=== PATIENT | male | born 1975 | race Caucasian/White ===

== ENCOUNTER 2019-08-02 13:12 | Outpatient (CLI) | payer MEDICAID, SELFPAY ==
--- NOTE | 2019-08-02 13:20 | MR_ITS ---
WS: [id number] MRI CERVICAL SPINE NONCONTRAST TECHNIQUE: Sagittal T1, T2 and STIR imaging. Axial T2, gradient, and fiesta imaging. CLINICAL INFORMATION: CERVICAL DISC DISEASE COMPARISON: None. FINDINGS: Straightening of the normal cervical lordosis. No high-grade central canal narrowing. Cord signal is normal. C2-C3: Normal. C3-C4: Mild disc bulging and osteophytic ridging. Moderate left and mild right bony foraminal narrowi ng. Mild facet arthropathy. Central canal is patent. C4-C5: Minimal disc bulging. Mild right and no significant left foraminal narrowing. Spinal canal is patent. C5-C6: Mild disc bulging with endplate ridging. Mild left and no significant right foraminal narrowin g. Mild facet arthropathy. Spinal canal is patent. C6-C7: Disc osteophyte complex with endplate ridging. Moderate to severe bilateral bony foraminal nir rowing. Mild central canal stenosis. C7-T1: Mild disc bulging with endplate ridging. Mild left greater than right foraminal narrowing. Spi nal canal is patent. Small central protrusion T2-3. Visualized brain stem structures: Normal. Prevertebral soft tissues: Normal. MR/MR cervical spin wo con* [id number] IMPRESSION: 1. Straightening of the normal cervical lordosis. No high-grade central canal stenosis. Cord signal is normal. 2. Mild central canal stenosis C5-C6 and C6-C7 due to small disc osteophyte pr otrusions. 3. Severe bilateral bony foraminal narrowing C6-C7. 4. Moderate bony foraminal narrowing left C3-C4 and left C7-T1.
--- NOTE | 2019-08-02 13:21 | MR_ITS ---
WS: [id number] MRI THORACIC SPINE WITHOUT CONTRAST TECHNIQUE: Sagittal T1, T2 and STIR imaging. Axial T2 imaging. Noncontrast imaging obtained. CLINICAL INFORMATION: RADIUCLAR PAIN OF THOARCIC REGION COMPARISON: None. FINDINGS: Mild thoracic curve. No acute compression fractures. Disc space heights and vertebral body heights ar e well-maintained. Minimal disc bulging in the upper and mid thoracic spine. Tiny central syrinx in t he thoracic cord at the T8 level measures approximately 1.7 mm in AP dimension. Syrinx extends over a pproximately 1 vertebral body length. Cord signal is otherwise normal. Tiny central protrusion at T6-T7 with slight effacement of ventral thecal sac. Moderate facet arthrop athy lower thoracic spine. Mild left T10-11 foraminal narrowing. Normal caliber thoracic aorta. Adrenal glands are normal. MR/MR thoracic spin wo con* [id number] IMPRESSION: 1. Tiny syrinx in the thoracic cord at the T8 level measuring 1.7 mm in maximu m AP dimension. Cord signal is otherwise normal. 2. Shallow central protrusion at T6-T7 with slight effacement of ventral theca l sac. 3. Mild left T10-11 bony foraminal narrowing. 4. Mild to moderate facet arthropathy in the lower thoracic spine.
== END 2019-08-02 13:13 | disposition home or self-care (01) ==
PROVIDERS: Family Provider Registered Nurse; PCP Registered Nurse; Referring Provider Registered Nurse; Visit Provider Registered Nurse
DX: M50.80 Other cervical disc disorders, unspecified cervical region (principal); M54.6 Pain in thoracic spine; M51.24 Other intervertebral disc displacement, thoracic region; M48.02 Spinal stenosis, cervical region; M50.223 Other cervical disc displacement at C6-C7 level; M25.78 Osteophyte, vertebrae
CPT/HCPCS: 72141; 72146

== ENCOUNTER 2019-08-23 09:21 | Outpatient (CLI) | payer MEDICAID, SELFPAY ==
--- NOTE | 2019-08-23 10:02 | MR_ITS ---
WS: [id number] MRI LUMBAR SPINE NONCONTRAST HISTORY: BACK PAIN COMPARISON: Lumbar spine MRI 09/23/2014 TECHNIQUE: Sagittal and axial multisequence imaging is submitted. Sagittal survey demonstrates straightening of the normal cervical lordosis and thoracic kyphosis. Pre viously described syrinx centered at the T8 level is again identified. Central disc protrusion at T2- 3 is stable. No progression since the prior study. Straightening and slight reversal of normal lumbar lordosis. Disc spaces are maintained with mild disc desiccation. No fracture or marrow edema. Conus terminates normally at L1. L1-L2: Mild annular disc bulging without stenosis. L2-L3: Mild annular disc bulging and osteophytosis. No significant stenosis. L3-L4: Mild annular disc bulging and osteophytosis. Amount of fluid in the facet joints. L4-L5: Very mild annular disc bulging. No significant stenosis. Minimal encroachment upon the subarti cular recesses and foramen. L5-S1: Mild facet arthropathy. Very slight encroachment upon the subarticular recesses and foramen bi laterally. Visualized retroperitoneum is negative. MR/MR lumbar spine wo con* [id number] IMPRESSION: 1. Mild straightening and reversal of the normal lumbar lordosis. 2. No significant central or foraminal stenosis. 3. Mild bilateral foraminal and subarticular recess narrowing at L4-5 and L5-S 1.
== END 2019-08-23 09:22 | disposition home or self-care (01) ==
LOC: RADSHAW 09:21 → RADWPI 09:24
PROVIDERS: Family Provider Registered Nurse; PCP Registered Nurse; Visit Provider Registered Nurse
DX: M54.5 Low back pain (principal)
CPT/HCPCS: 72148

== ENCOUNTER → 2019-08-31 14:19 | Outpatient (BNVA) | payer MEDICAID, SELFPAY | PROVIDERS: Family Provider Registered Nurse; PCP Internal Medicine; Visit Provider Internal Medicine Rheumatology | DX: M79.10 Myalgia, unspecified site (principal); Z79.899 Other long term (current) drug therapy | CPT/HCPCS: 36415; 82085; 82550; 85651; 86140; 99213 ==

== ENCOUNTER → 2020-01-06 12:26 | Outpatient (BNVA) | payer MEDICAID, SELFPAY | PROVIDERS: Family Provider Registered Nurse; PCP Family Medicine; Referring Provider Family Medicine; Visit Provider Anesthesiology Pain Medicine | DX: G89.29 Other chronic pain (principal); M50.90 Cervical disc disorder, unspecified, unspecified cervical region; M54.6 Pain in thoracic spine; G57.93 Unspecified mononeuropathy of bilateral lower limbs; F17.220 Nicotine dependence, chewing tobacco, uncomplicated; Z79.891 Long term (current) use of opiate analgesic | CPT/HCPCS: 99204; 99205 ==

== ENCOUNTER → 2020-01-19 13:06 | Outpatient (BNVA) | payer MEDICAID, SELFPAY | PROVIDERS: Family Provider Registered Nurse; PCP Family Medicine; Visit Provider Anesthesiology Pain Medicine | DX: G89.29 Other chronic pain (principal); M47.816 Spondylosis without myelopathy or radiculopathy, lumbar region; M54.6 Pain in thoracic spine; F17.220 Nicotine dependence, chewing tobacco, uncomplicated; Z79.891 Long term (current) use of opiate analgesic | CPT/HCPCS: 64493; 64494; 64495; J2001; J3490 ==

== ENCOUNTER → 2020-02-01 10:18 | Outpatient (BNVA) | payer MEDICAID, SELFPAY | PROVIDERS: Family Provider Registered Nurse; PCP Family Medicine; Visit Provider Anesthesiology Pain Medicine | DX: G89.29 Other chronic pain (principal); M54.12 Radiculopathy, cervical region; M47.812 Spondylosis without myelopathy or radiculopathy, cervical region; M50.90 Cervical disc disorder, unspecified, unspecified cervical region; M54.6 Pain in thoracic spine; M47.816 Spondylosis without myelopathy or radiculopathy, lumbar region; Z79.891 Long term (current) use of opiate analgesic; I10 Essential (primary) hypertension; R35.1 Nocturia; F17.220 Nicotine dependence, chewing tobacco, uncomplicated | CPT/HCPCS: 80053; 80061; 82044; 84153; 85025; 99214 ==

== ENCOUNTER → 2020-02-07 07:43 | Outpatient (BNVA) | payer MEDICAID, SELFPAY | PROVIDERS: Family Provider Registered Nurse; PCP Family Medicine; Visit Provider Nurse Practitioner Psychiatric/Mental Health | DX: F33.1 Major depressive disorder, recurrent, moderate (principal); M25.50 Pain in unspecified joint; F41.1 Generalized anxiety disorder; M79.10 Myalgia, unspecified site; F17.220 Nicotine dependence, chewing tobacco, uncomplicated; M47.816 Spondylosis without myelopathy or radiculopathy, lumbar region; M50.90 Cervical disc disorder, unspecified, unspecified cervical region; M48.061 Spinal stenosis, lumbar region without neurogenic claudication; Z79.899 Other long term (current) drug therapy | CPT/HCPCS: 99214 ==

== ENCOUNTER 2020-02-25 09:42 | Outpatient (CLI) | payer MEDICAID, SELFPAY ==
--- NOTE | 2020-02-25 10:00 | CT_ITS ---
WS: [id number] CT CHEST WITH INTRAVENOUS CONTRAST HISTORY: left basilar opacity with nodularity TECHNIQUE: Contiguous 5 mm axial imaging performed on the thorax. Coronal and sagittal reformats are submitted. All CT scans at [facility] use at least one of these dose optimization techniq ues: automated exposure control; mA and/or kV adjustment per patient size (includes targeted exams wh ere dose is matched to clinical indication); or iterative reconstruction. CONTRAST: Omnipaque 300; 95 mL IV. DLP: 1094.56 mGycm COMPARISON: No similar study studies. Prior chest radiograph 05/18/2019. Lungs and central airway: Lungs are clear and well aerated. No pulmonary mass or nodule. No pneumonia . Normal vasculature. No opacification of the LEFT lung base. Pleura: Normal. No pleural effusion. Heart and pericardium: Normal size heart. No pericardial effusion. Mediastinum and jolie: No mediastinum or hilar adenopathy. Vessels: Normal size aortic and pulmonary artery. No coronary artery calcifications. LEFT vertebral a rtery arises directly from the arch, normal variant. Chest wall and lower neck: Ovoid nodule measures 12 mm inferior RIGHT thyroid. Upper abdomen: Mild hepatic steatosis. There are a few scattered low-attenuation lesions within the l iver which are too small to characterize. Probably are small cysts. Prior cholecystectomy. Osseous structures: Mild straightening of the normal lumbar lordosis with RIGHT convex curvature. CT/CT chest w con* [id number] IMPRESSION: 1. No lung mass or opacification. 2. Prior cholecystectomy. 3. 12 mm RIGHT thyroid nodule. 4. 2. Small to characterize scattered hypodensities throughout the liver.
[2020-02-25] MEDS: iohexol 300 mg/mL 100 mL Btl IV (10:18)
== END 2020-02-25 09:43 ==
PROVIDERS: Family Provider Registered Nurse; PCP Family Medicine; Visit Provider Internal Medicine Rheumatology
DX: G89.29 Other chronic pain (principal); M47.816 Spondylosis without myelopathy or radiculopathy, lumbar region; M54.6 Pain in thoracic spine; M50.90 Cervical disc disorder, unspecified, unspecified cervical region; M54.12 Radiculopathy, cervical region; M47.812 Spondylosis without myelopathy or radiculopathy, cervical region; G57.93 Unspecified mononeuropathy of bilateral lower limbs; M25.50 Pain in unspecified joint; F17.220 Nicotine dependence, chewing tobacco, uncomplicated; Z79.891 Long term (current) use of opiate analgesic
CPT/HCPCS: 64635; 64636; 71260; 99213; 99214; J1030; Q9967

== ENCOUNTER → 2020-03-01 13:50 | Outpatient (BNVA) | payer MEDICAID, SELFPAY | PROVIDERS: Family Provider Registered Nurse; PCP Family Medicine; Visit Provider Anesthesiology Pain Medicine | DX: G89.29 Other chronic pain (principal); M47.816 Spondylosis without myelopathy or radiculopathy, lumbar region; M54.6 Pain in thoracic spine; M54.9 Dorsalgia, unspecified; Z79.891 Long term (current) use of opiate analgesic | CPT/HCPCS: 64635; 64636; 80048; J1030 ==

== ENCOUNTER → 2020-03-14 09:32 | Outpatient (BNVA) | payer MEDICAID, SELFPAY | PROVIDERS: Family Provider Registered Nurse; PCP Family Medicine; Visit Provider Nurse Practitioner Psychiatric/Mental Health | DX: F33.1 Major depressive disorder, recurrent, moderate (principal); F41.1 Generalized anxiety disorder; F17.220 Nicotine dependence, chewing tobacco, uncomplicated | CPT/HCPCS: 99214 ==

== ENCOUNTER → 2020-03-23 10:40 | Outpatient (BNVA) | payer MEDICAID, SELFPAY | PROVIDERS: Family Provider Registered Nurse; PCP Family Medicine; Visit Provider Anesthesiology Pain Medicine | DX: G89.29 Other chronic pain (principal); M25.552 Pain in left hip; M47.816 Spondylosis without myelopathy or radiculopathy, lumbar region; M54.12 Radiculopathy, cervical region; M47.812 Spondylosis without myelopathy or radiculopathy, cervical region; M50.90 Cervical disc disorder, unspecified, unspecified cervical region; M54.6 Pain in thoracic spine; M25.50 Pain in unspecified joint; F17.220 Nicotine dependence, chewing tobacco, uncomplicated; Z79.891 Long term (current) use of opiate analgesic | CPT/HCPCS: 99214 ==

== ENCOUNTER → 2020-04-05 13:03 | Outpatient (BNVA) | payer MEDICAID, SELFPAY | PROVIDERS: Family Provider Registered Nurse; PCP Family Medicine; Visit Provider Anesthesiology Pain Medicine | DX: G89.29 Other chronic pain (principal); M47.816 Spondylosis without myelopathy or radiculopathy, lumbar region; M54.6 Pain in thoracic spine; F17.220 Nicotine dependence, chewing tobacco, uncomplicated | CPT/HCPCS: 64490; 64491; 64492; J1040; J3490 ==

== ENCOUNTER → 2020-04-12 09:46 | Outpatient (BNVA) | payer MEDICAID, SELFPAY | PROVIDERS: Family Provider Registered Nurse; PCP Family Medicine; Visit Provider Nurse Practitioner Psychiatric/Mental Health | DX: F33.1 Major depressive disorder, recurrent, moderate (principal); F41.1 Generalized anxiety disorder; F17.220 Nicotine dependence, chewing tobacco, uncomplicated; F33.2 Major depressive disorder, recurrent severe without psychotic features | CPT/HCPCS: 99214 ==

== ENCOUNTER → 2020-04-27 09:24 | Outpatient (BNVA) | payer MEDICAID, SELFPAY | PROVIDERS: Family Provider Registered Nurse; PCP Family Medicine; Visit Provider Anesthesiology Pain Medicine | DX: Z79.899 Other long term (current) drug therapy (principal); G89.29 Other chronic pain; M54.12 Radiculopathy, cervical region; M50.90 Cervical disc disorder, unspecified, unspecified cervical region; M47.812 Spondylosis without myelopathy or radiculopathy, cervical region; M47.816 Spondylosis without myelopathy or radiculopathy, lumbar region; M48.061 Spinal stenosis, lumbar region without neurogenic claudication; G25.81 Restless legs syndrome; M79.10 Myalgia, unspecified site; F17.220 Nicotine dependence, chewing tobacco, uncomplicated; Z79.891 Long term (current) use of opiate analgesic | CPT/HCPCS: 36415; 80076; 82565; 85025; 85651; 86140; 99214 ==

== ENCOUNTER → 2020-05-10 07:55 | Outpatient (BNVA) | payer MEDICAID, SELFPAY | PROVIDERS: Family Provider Registered Nurse; PCP Family Medicine; Visit Provider Nurse Practitioner Psychiatric/Mental Health | DX: F33.1 Major depressive disorder, recurrent, moderate (principal); F41.1 Generalized anxiety disorder; F17.220 Nicotine dependence, chewing tobacco, uncomplicated | CPT/HCPCS: 99214 ==

== ENCOUNTER → 2020-05-11 14:36 | Outpatient (BNVA) | payer MEDICAID, SELFPAY | PROVIDERS: Family Provider Registered Nurse; PCP Family Medicine; Visit Provider Internal Medicine Rheumatology | DX: I10 Essential (primary) hypertension (principal); M79.10 Myalgia, unspecified site; M47.816 Spondylosis without myelopathy or radiculopathy, lumbar region; Z68.33 Body mass index [BMI] 33.0-33.9, adult; F17.220 Nicotine dependence, chewing tobacco, uncomplicated; M47.812 Spondylosis without myelopathy or radiculopathy, cervical region; M25.50 Pain in unspecified joint; Z79.899 Other long term (current) drug therapy | CPT/HCPCS: 80048; 99214 ==

== ENCOUNTER → 2020-05-25 09:57 | Outpatient (BNVA) | payer MEDICAID, SELFPAY | PROVIDERS: Family Provider Registered Nurse; PCP Family Medicine; Visit Provider Anesthesiology Pain Medicine | DX: G89.29 Other chronic pain (principal); M50.90 Cervical disc disorder, unspecified, unspecified cervical region; M47.812 Spondylosis without myelopathy or radiculopathy, cervical region; M47.816 Spondylosis without myelopathy or radiculopathy, lumbar region; M48.061 Spinal stenosis, lumbar region without neurogenic claudication; M54.6 Pain in thoracic spine; M79.10 Myalgia, unspecified site; G57.93 Unspecified mononeuropathy of bilateral lower limbs; G25.81 Restless legs syndrome; Z79.891 Long term (current) use of opiate analgesic | CPT/HCPCS: 99213; 99214 ==

== ENCOUNTER → 2020-06-13 07:48 | Outpatient (BNVA) | payer MEDICAID, SELFPAY | PROVIDERS: Family Provider Registered Nurse; PCP Family Medicine; Visit Provider Nurse Practitioner Psychiatric/Mental Health | DX: F33.1 Major depressive disorder, recurrent, moderate (principal); M79.7 Fibromyalgia; F41.1 Generalized anxiety disorder; F17.220 Nicotine dependence, chewing tobacco, uncomplicated | CPT/HCPCS: 99214 ==

== ENCOUNTER → 2020-06-15 09:28 | Outpatient (BNVA) | payer MEDICAID, SELFPAY | PROVIDERS: Family Provider Registered Nurse; PCP Family Medicine; Visit Provider Anesthesiology Pain Medicine | DX: Z79.899 Other long term (current) drug therapy (principal); G89.29 Other chronic pain; M47.814 Spondylosis without myelopathy or radiculopathy, thoracic region; M48.061 Spinal stenosis, lumbar region without neurogenic claudication; M47.816 Spondylosis without myelopathy or radiculopathy, lumbar region; M50.90 Cervical disc disorder, unspecified, unspecified cervical region; M47.812 Spondylosis without myelopathy or radiculopathy, cervical region; M54.12 Radiculopathy, cervical region; G25.81 Restless legs syndrome; M79.10 Myalgia, unspecified site; M54.9 Dorsalgia, unspecified | CPT/HCPCS: 36415; 80076; 82565; 85025; 85651; 86140; 99214 ==

== ENCOUNTER → 2020-07-13 09:36 | Outpatient (BNVA) | payer MEDICAID, SELFPAY | PROVIDERS: Family Provider Registered Nurse; PCP Family Medicine; Visit Provider Anesthesiology Pain Medicine | DX: G89.29 Other chronic pain (principal); M47.816 Spondylosis without myelopathy or radiculopathy, lumbar region; M54.6 Pain in thoracic spine; M54.12 Radiculopathy, cervical region; M50.90 Cervical disc disorder, unspecified, unspecified cervical region; M47.812 Spondylosis without myelopathy or radiculopathy, cervical region; M48.061 Spinal stenosis, lumbar region without neurogenic claudication; M54.9 Dorsalgia, unspecified; G25.81 Restless legs syndrome; M79.10 Myalgia, unspecified site | CPT/HCPCS: 99214 ==

== ENCOUNTER → 2020-08-15 07:32 | Outpatient (BNVA) | payer MEDICAID, SELFPAY | PROVIDERS: Family Provider Registered Nurse; PCP Family Medicine; Visit Provider Nurse Practitioner Psychiatric/Mental Health | DX: F33.1 Major depressive disorder, recurrent, moderate (principal); F41.1 Generalized anxiety disorder; M79.7 Fibromyalgia; F17.220 Nicotine dependence, chewing tobacco, uncomplicated | CPT/HCPCS: 99214 ==

== ENCOUNTER → 2020-08-17 09:32 | Outpatient (BNVA) | payer MEDICAID, SELFPAY | PROVIDERS: Family Provider Registered Nurse; PCP Family Medicine; Visit Provider Anesthesiology Pain Medicine | DX: G89.29 Other chronic pain (principal); M48.061 Spinal stenosis, lumbar region without neurogenic claudication; M47.816 Spondylosis without myelopathy or radiculopathy, lumbar region; M54.6 Pain in thoracic spine; M54.9 Dorsalgia, unspecified; M50.90 Cervical disc disorder, unspecified, unspecified cervical region; M47.812 Spondylosis without myelopathy or radiculopathy, cervical region; M54.12 Radiculopathy, cervical region; G25.81 Restless legs syndrome; F17.220 Nicotine dependence, chewing tobacco, uncomplicated; Z79.891 Long term (current) use of opiate analgesic | CPT/HCPCS: 99214 ==

== ENCOUNTER → 2020-09-12 07:38 | Outpatient (BNVA) | payer MEDICAID, SELFPAY | PROVIDERS: Family Provider Registered Nurse; PCP Family Medicine; Visit Provider Nurse Practitioner Psychiatric/Mental Health | DX: F33.1 Major depressive disorder, recurrent, moderate (principal); M79.7 Fibromyalgia; F41.1 Generalized anxiety disorder; F17.220 Nicotine dependence, chewing tobacco, uncomplicated; F60.3 Borderline personality disorder | CPT/HCPCS: 99214 ==

== ENCOUNTER → 2020-09-15 10:43 | Outpatient (BNVA) | payer MEDICAID, SELFPAY | PROVIDERS: Family Provider Registered Nurse; PCP Family Medicine; Visit Provider Anesthesiology Pain Medicine | DX: G89.29 Other chronic pain (principal); M54.6 Pain in thoracic spine; M50.90 Cervical disc disorder, unspecified, unspecified cervical region; M54.9 Dorsalgia, unspecified; M47.816 Spondylosis without myelopathy or radiculopathy, lumbar region; M47.812 Spondylosis without myelopathy or radiculopathy, cervical region; M54.12 Radiculopathy, cervical region; M48.061 Spinal stenosis, lumbar region without neurogenic claudication; G25.81 Restless legs syndrome; F17.210 Nicotine dependence, cigarettes, uncomplicated; Z79.891 Long term (current) use of opiate analgesic | CPT/HCPCS: 99214 ==

== ENCOUNTER → 2020-10-10 07:40 | Outpatient (BNVA) | payer MEDICAID, SELFPAY | PROVIDERS: Family Provider Registered Nurse; PCP Family Medicine; Visit Provider Nurse Practitioner Psychiatric/Mental Health | DX: F33.1 Major depressive disorder, recurrent, moderate (principal); F41.1 Generalized anxiety disorder; F17.220 Nicotine dependence, chewing tobacco, uncomplicated; M79.7 Fibromyalgia | CPT/HCPCS: 99214 ==

== ENCOUNTER → 2020-10-16 10:19 | Outpatient (BNVA) | payer MEDICAID, SELFPAY | PROVIDERS: Family Provider Registered Nurse; PCP Family Medicine; Visit Provider Anesthesiology Pain Medicine | DX: G89.29 Other chronic pain (principal); M50.90 Cervical disc disorder, unspecified, unspecified cervical region; M47.812 Spondylosis without myelopathy or radiculopathy, cervical region; M47.816 Spondylosis without myelopathy or radiculopathy, lumbar region; M48.061 Spinal stenosis, lumbar region without neurogenic claudication; M54.12 Radiculopathy, cervical region; M54.9 Dorsalgia, unspecified; M79.10 Myalgia, unspecified site; G25.81 Restless legs syndrome; F17.220 Nicotine dependence, chewing tobacco, uncomplicated; Z79.891 Long term (current) use of opiate analgesic | CPT/HCPCS: 99214 ==

== ENCOUNTER → 2020-11-02 08:52 | Outpatient (BNVA) | payer MEDICAID, SELFPAY | PROVIDERS: Family Provider Registered Nurse; PCP Family Medicine; Referring Provider Anesthesiology Pain Medicine; Visit Provider Orthopaedic Surgery | DX: M48.061 Spinal stenosis, lumbar region without neurogenic claudication (principal); M54.6 Pain in thoracic spine; M48.02 Spinal stenosis, cervical region; M54.12 Radiculopathy, cervical region | CPT/HCPCS: 72050; 72072; 72110 ==

== ENCOUNTER → 2020-11-08 07:59 | Outpatient (BNVA) | payer MEDICAID, SELFPAY | PROVIDERS: Family Provider Registered Nurse; PCP Family Medicine; Visit Provider Nurse Practitioner Psychiatric/Mental Health | DX: F33.1 Major depressive disorder, recurrent, moderate (principal); M79.7 Fibromyalgia; F41.1 Generalized anxiety disorder; F17.220 Nicotine dependence, chewing tobacco, uncomplicated | CPT/HCPCS: 99214 ==

== ENCOUNTER → 2020-11-10 12:52 | Outpatient (BNVA) | payer MEDICAID, SELFPAY | PROVIDERS: Family Provider Registered Nurse; PCP Family Medicine; Visit Provider Anesthesiology Pain Medicine | DX: G89.29 Other chronic pain (principal); M54.12 Radiculopathy, cervical region; M50.90 Cervical disc disorder, unspecified, unspecified cervical region; M54.6 Pain in thoracic spine; F17.210 Nicotine dependence, cigarettes, uncomplicated; Z79.891 Long term (current) use of opiate analgesic | CPT/HCPCS: 62321; 99213; J1100 ==

== ENCOUNTER → 2020-11-24 13:50 | Outpatient (BNVA) | payer MEDICAID, SELFPAY | PROVIDERS: Family Provider Registered Nurse; PCP Family Medicine; Visit Provider Anesthesiology Pain Medicine | DX: G89.29 Other chronic pain (principal); M47.812 Spondylosis without myelopathy or radiculopathy, cervical region; M50.90 Cervical disc disorder, unspecified, unspecified cervical region; M54.9 Dorsalgia, unspecified; M47.816 Spondylosis without myelopathy or radiculopathy, lumbar region; M48.061 Spinal stenosis, lumbar region without neurogenic claudication; G57.93 Unspecified mononeuropathy of bilateral lower limbs; M79.10 Myalgia, unspecified site; G25.81 Restless legs syndrome; Z79.891 Long term (current) use of opiate analgesic | CPT/HCPCS: 99214 ==

== ENCOUNTER 2020-12-11 13:13 | Outpatient (CLI) | payer MEDICAID, SELFPAY ==
--- NOTE | 2020-12-11 13:30 | USCV_ITS ---
ConstanceFabricio faria Age: 45 Gender: M : 1975 Exam Date: 12/11/2020 13:28 Ordering Phys: Jossy Nelson DO Technologist: Darron Reyes [place] [facility] [place]: HISTORY: PROCEDURES: Bilateral duplex Venous Insufficiency study of the Deep and Superficial systems was carried out according to normal protocol with the patient in supine positon for deep system and dependent position for the superficial system. FINDINGS: No evidence of reflux was noted in the RIGHT deep venous system. No evidence of reflux was noted in the LEFT deep venous system. There is no evidence of RIGHT deep vein thrombosis. There is no evidence of LEFT deep vein thrombosis. Vein diameter and depth measurements noted above. No superficial thrombosus seen in right or left Non pulsatile flow pattern. CONCLUSIONS No evidence of DVT in the above-mentioned identifiable veins. No significant venous reflux in the deep or superficial veins. Relatively large superficial veins bilaterally Dr Zina Durham MD [facility] (Electronically Signed) Final Date: 11 Dec 2020 16:44 S
== END 2020-12-11 13:14 | disposition home or self-care (01) ==
LOC: US 13:15
PROVIDERS: PCP Family Medicine; Visit Provider Family Medicine
DX: R60.0 Localized edema (principal); F41.1 Generalized anxiety disorder; F33.1 Major depressive disorder, recurrent, moderate
CPT/HCPCS: 93970; 99214

== ENCOUNTER → 2020-12-22 09:16 | Outpatient (BNVA) | payer MEDICAID, SELFPAY | PROVIDERS: PCP Family Medicine; Visit Provider Anesthesiology Pain Medicine | DX: G89.29 Other chronic pain (principal); M48.061 Spinal stenosis, lumbar region without neurogenic claudication; M47.816 Spondylosis without myelopathy or radiculopathy, lumbar region; M50.90 Cervical disc disorder, unspecified, unspecified cervical region; M47.812 Spondylosis without myelopathy or radiculopathy, cervical region; M54.12 Radiculopathy, cervical region; M54.9 Dorsalgia, unspecified; M79.10 Myalgia, unspecified site; G25.81 Restless legs syndrome; F17.220 Nicotine dependence, chewing tobacco, uncomplicated; Z79.891 Long term (current) use of opiate analgesic | CPT/HCPCS: 99214 ==

== ENCOUNTER → 2021-01-17 08:18 | Outpatient (BNVA) | payer MEDICAID, SELFPAY | PROVIDERS: PCP Family Medicine; Visit Provider Nurse Practitioner Psychiatric/Mental Health | DX: F33.1 Major depressive disorder, recurrent, moderate (principal); M79.7 Fibromyalgia; F41.1 Generalized anxiety disorder; F17.210 Nicotine dependence, cigarettes, uncomplicated | CPT/HCPCS: 99214 ==

== ENCOUNTER → 2021-01-18 08:57 | Outpatient (BNVA) | payer MEDICAID, SELFPAY | PROVIDERS: PCP Family Medicine; Visit Provider Anesthesiology Pain Medicine | DX: G89.29 Other chronic pain (principal); M50.90 Cervical disc disorder, unspecified, unspecified cervical region; M47.812 Spondylosis without myelopathy or radiculopathy, cervical region; M54.12 Radiculopathy, cervical region; M48.061 Spinal stenosis, lumbar region without neurogenic claudication; M47.816 Spondylosis without myelopathy or radiculopathy, lumbar region; M54.6 Pain in thoracic spine; M54.9 Dorsalgia, unspecified; R25.3 Fasciculation; Z79.891 Long term (current) use of opiate analgesic | CPT/HCPCS: 99214 ==

== ENCOUNTER → 2021-01-31 14:16 | Outpatient (BNVA) | payer MEDICAID, SELFPAY | PROVIDERS: PCP Family Medicine; Visit Provider Anesthesiology Pain Medicine | DX: G89.29 Other chronic pain (principal); M47.816 Spondylosis without myelopathy or radiculopathy, lumbar region; M54.9 Dorsalgia, unspecified; Z87.891 Personal history of nicotine dependence; Z79.891 Long term (current) use of opiate analgesic | CPT/HCPCS: 64635; 64636; J1030 ==

== ENCOUNTER → 2021-02-08 13:12 | Outpatient (BNVA) | payer MEDICAID, SELFPAY | PROVIDERS: PCP Family Medicine; Visit Provider Nurse Practitioner | DX: Z20.822 Contact with and (suspected) exposure to COVID-19 (principal); M54.2 Cervicalgia | CPT/HCPCS: 87635 ==

== ENCOUNTER → 2021-02-16 13:37 | Outpatient (BNVA) | payer MEDICAID, SELFPAY | PROVIDERS: PCP Family Medicine; Visit Provider Anesthesiology Pain Medicine | DX: G89.29 Other chronic pain (principal); M48.061 Spinal stenosis, lumbar region without neurogenic claudication; M47.816 Spondylosis without myelopathy or radiculopathy, lumbar region; M50.90 Cervical disc disorder, unspecified, unspecified cervical region; M54.12 Radiculopathy, cervical region; M47.812 Spondylosis without myelopathy or radiculopathy, cervical region; R25.3 Fasciculation; M79.10 Myalgia, unspecified site; Z79.891 Long term (current) use of opiate analgesic | CPT/HCPCS: 64635; 64636; 99213; 99214; J1030 ==

== ENCOUNTER → 2021-02-21 12:50 | Outpatient (BNVA) | payer MEDICAID, SELFPAY | PROVIDERS: PCP Family Medicine; Visit Provider Nurse Practitioner Psychiatric/Mental Health | DX: F33.1 Major depressive disorder, recurrent, moderate (principal); F41.1 Generalized anxiety disorder; F17.220 Nicotine dependence, chewing tobacco, uncomplicated; M79.7 Fibromyalgia | CPT/HCPCS: 99214 ==

== ENCOUNTER → 2021-03-12 13:21 | Outpatient (BNVA) | payer MEDICAID, SELFPAY | PROVIDERS: PCP Family Medicine; Visit Provider Family Medicine | DX: I10 Essential (primary) hypertension (principal); K29.50 Unspecified chronic gastritis without bleeding; Z13.6 Encounter for screening for cardiovascular disorders | CPT/HCPCS: 80053 ==

== ENCOUNTER → 2021-03-23 08:43 | Outpatient (BNVA) | payer MEDICAID, SELFPAY | PROVIDERS: PCP Family Medicine; Visit Provider Anesthesiology Pain Medicine | DX: G89.29 Other chronic pain (principal); M54.6 Pain in thoracic spine; M47.816 Spondylosis without myelopathy or radiculopathy, lumbar region; M48.061 Spinal stenosis, lumbar region without neurogenic claudication; M50.90 Cervical disc disorder, unspecified, unspecified cervical region; M47.812 Spondylosis without myelopathy or radiculopathy, cervical region; M54.12 Radiculopathy, cervical region; M25.50 Pain in unspecified joint; M79.10 Myalgia, unspecified site; R25.3 Fasciculation; Z79.891 Long term (current) use of opiate analgesic | CPT/HCPCS: 99214 ==

== ENCOUNTER → 2021-03-30 13:52 | Outpatient (BNVA) | payer MEDICAID, SELFPAY | PROVIDERS: PCP Family Medicine; Visit Provider Nurse Practitioner Psychiatric/Mental Health | DX: F33.1 Major depressive disorder, recurrent, moderate (principal); F41.1 Generalized anxiety disorder; F17.220 Nicotine dependence, chewing tobacco, uncomplicated; M79.7 Fibromyalgia | CPT/HCPCS: 99214 ==

== ENCOUNTER → 2021-04-26 08:04 | Outpatient (BNVA) | payer MEDICAID, SELFPAY | PROVIDERS: PCP Family Medicine; Visit Provider Nurse Practitioner Psychiatric/Mental Health | DX: F33.1 Major depressive disorder, recurrent, moderate (principal); F41.1 Generalized anxiety disorder; F17.220 Nicotine dependence, chewing tobacco, uncomplicated; M79.7 Fibromyalgia | CPT/HCPCS: 99214 ==

== ENCOUNTER → 2021-05-03 13:33 | Outpatient (BNVA) | payer MEDICAID, SELFPAY | PROVIDERS: PCP Family Medicine; Visit Provider Anesthesiology Pain Medicine | DX: G89.29 Other chronic pain (principal); M47.814 Spondylosis without myelopathy or radiculopathy, thoracic region; M47.816 Spondylosis without myelopathy or radiculopathy, lumbar region; M48.061 Spinal stenosis, lumbar region without neurogenic claudication; M50.90 Cervical disc disorder, unspecified, unspecified cervical region; M47.812 Spondylosis without myelopathy or radiculopathy, cervical region; G57.93 Unspecified mononeuropathy of bilateral lower limbs; M25.50 Pain in unspecified joint; M79.10 Myalgia, unspecified site; R25.3 Fasciculation; R20.2 Paresthesia of skin; Z79.891 Long term (current) use of opiate analgesic; Z87.891 Personal history of nicotine dependence | CPT/HCPCS: 99214 ==

== ENCOUNTER → 2021-05-16 13:17 | Outpatient (BNVA) | payer MEDICAID, SELFPAY | PROVIDERS: PCP Family Medicine; Visit Provider Anesthesiology Pain Medicine | DX: M47.812 Spondylosis without myelopathy or radiculopathy, cervical region (principal); Z79.891 Long term (current) use of opiate analgesic | CPT/HCPCS: 64490; 64491; 64492; J3490 ==

== ENCOUNTER → 2021-05-30 09:35 | Outpatient (BNVA) | payer MEDICAID, SELFPAY | PROVIDERS: PCP Family Medicine; Visit Provider Anesthesiology Pain Medicine | DX: G89.29 Other chronic pain (principal); M48.061 Spinal stenosis, lumbar region without neurogenic claudication; M47.816 Spondylosis without myelopathy or radiculopathy, lumbar region; M50.90 Cervical disc disorder, unspecified, unspecified cervical region; M47.812 Spondylosis without myelopathy or radiculopathy, cervical region; M54.12 Radiculopathy, cervical region; M48.02 Spinal stenosis, cervical region; M25.50 Pain in unspecified joint; M46.94 Unspecified inflammatory spondylopathy, thoracic region; R25.3 Fasciculation; Z79.891 Long term (current) use of opiate analgesic | CPT/HCPCS: 99214 ==

== ENCOUNTER → 2021-06-19 10:36 | Outpatient (BNVA) | payer MEDICAID, SELFPAY | PROVIDERS: PCP Family Medicine; Visit Provider Nurse Practitioner Psychiatric/Mental Health | DX: F33.1 Major depressive disorder, recurrent, moderate (principal); F41.1 Generalized anxiety disorder; F17.220 Nicotine dependence, chewing tobacco, uncomplicated; M79.7 Fibromyalgia | CPT/HCPCS: 99214 ==

== ENCOUNTER → 2021-07-11 13:34 | Outpatient (BNVA) | payer MEDICAID, SELFPAY | PROVIDERS: PCP Family Medicine; Visit Provider Anesthesiology Pain Medicine | DX: M47.812 Spondylosis without myelopathy or radiculopathy, cervical region (principal); Z79.891 Long term (current) use of opiate analgesic | CPT/HCPCS: 64633; 64634; J1030 ==

== ENCOUNTER 2021-07-26 14:25 | Outpatient (CLI) | payer MEDICAID, SELFPAY | END 2021-07-26 14:26 | disposition home or self-care (01) | LOC: SPT 14:28 | PROVIDERS: PCP Family Medicine; Visit Provider Orthopaedic Surgery | DX: Z46.89 Encounter for fitting and adjustment of other specified devices (principal); M54.12 Radiculopathy, cervical region; M50.90 Cervical disc disorder, unspecified, unspecified cervical region | CPT/HCPCS: 97760; L0174 ==

== ENCOUNTER → 2021-08-01 11:10 | Outpatient (BNVA) | payer MEDICAID, SELFPAY | PROVIDERS: PCP Family Medicine; Visit Provider Anesthesiology Pain Medicine | DX: G89.29 Other chronic pain (principal); M47.812 Spondylosis without myelopathy or radiculopathy, cervical region; M50.90 Cervical disc disorder, unspecified, unspecified cervical region; M47.816 Spondylosis without myelopathy or radiculopathy, lumbar region; M48.061 Spinal stenosis, lumbar region without neurogenic claudication; M54.6 Pain in thoracic spine; M25.50 Pain in unspecified joint; M79.10 Myalgia, unspecified site; R25.3 Fasciculation; G57.93 Unspecified mononeuropathy of bilateral lower limbs; Z79.891 Long term (current) use of opiate analgesic; Z87.891 Personal history of nicotine dependence | CPT/HCPCS: 99214 ==

== ENCOUNTER → 2021-08-08 07:33 | Outpatient (BNVA) | payer MEDICAID, SELFPAY | PROVIDERS: PCP Family Medicine; Visit Provider Nurse Practitioner Psychiatric/Mental Health | DX: F33.1 Major depressive disorder, recurrent, moderate (principal); F41.1 Generalized anxiety disorder; F17.220 Nicotine dependence, chewing tobacco, uncomplicated; M79.7 Fibromyalgia | CPT/HCPCS: 99214 ==

== ENCOUNTER → 2021-08-17 00:01 | Outpatient (BNVA) | payer MEDICAID, SELFPAY | PROVIDERS: PCP Family Medicine; Visit Provider Orthopaedic Surgery | DX: Z01.818 Encounter for other preprocedural examination (principal) | CPT/HCPCS: 87635 ==

== ENCOUNTER 2021-09-12 06:12 | Day surgery (SDC) | payer MEDICAID, SELFPAY ==
[2021-09-10 14:09] VITALS: BMI 35.6
[2021-09-10 16:01] LABS: Anion Gap 15.2 (5-19); Blood Urea Nitrogen 18 mg/dL (6-20); Calcium 8.6 mg/dL (8.5-10.5); Carbon Dioxide 27 mmol/L (22-29); Chloride 102 mmol/L (98-107); Glomerular Filtration Rate 64.6 mL/min (90-130); Glucose 103 mg/dL (65-115); Osmolality Calculated 292 mOsm/kg (285-295); Potassium 4.2 mmol/L (3.5-5.1); Sodium 140 mmol/L (136-145)
[2021-09-12] VITALS (15 sets, daily range): BP systolic 113–144; BP diastolic 81–106; PULSE 90–100; RESP 13–21; TEMP 36.4–36.9; O2SAT 89–97
--- NOTE | 2021-09-12 | SCC_ITS ---
Procedure done: 1. Anterior diskectomy C5/6 2. Anterior discectomy C6/7 3. Insertion of cage C5/6 4. Insertion of Cage C6/7 5. Instrumentation with anterior plate from C5-C7 6. Use of allograft 12.8 seconds of fluoroscopic guidance, for a cumulative dose of 2.94 mGy, was provided to Dr. Long by the radiology department. C-arm images of the cervical spine were saved for the patient's permanent record. WOND
--- NOTE | 2021-09-12 | XR_ITS ---
WS: [id number] INTRAOPERATIVE TECHNIQUE: 5 Spot fluoroscopic images for intraoperative purposes. FLUOROSCOPY TIME: 12.8 seconds CLINICAL INFORMATION: acdf COMPARISON: None. FINDINGS: Intraoperative changes ACDF C5-C7 with interbody fusion grafts. Hardware appears in good position. En dotracheal tube. Normal C1-C2 articulation. XR/XR cervical spine 3V* [id number] IMPRESSION: Images obtained for intraoperative purposes.
[2021-09-12] MEDS: sodium chloride 0.9% 1,000 ML 30 ML IV (06:45)
--- NOTE | 2021-09-12 06:52 | PM.HP ---
Providers/Chief Complaint Primary Care Provider: Jossy Nelson DO Chief Complaint: Cervical stenosis History of Present Illness Fabricio Nolasco is a 46 year old male He describes pain with head movements including looking? up and side to side. He also describes a popping sensation to his neck. On 07/11/21 he had a Left C3/4, 4/5, 5/6, Medial Branch Radiofrequency Ablation which did not provide him with significant relief. He complains of neck pain and numbness to his bilat arms and hands. He complains of pain with bending foreword. He also complain of low back pain and pain in his tailbone. He has tried injections and ablation for this which did provide him short term relief. Review of Systems General: Reports: 10 or more systems reviewed and unremarkable except in HPI and below Const: Denies: fever(s) or chills Eyes: Denies: change in vision ENMT: Denies: throat pain Card: Denies: chest pain or dyspnea on exertion Resp: Denies: dyspnea, productive cough or wheezing GI: Denies: abdominal pain, nausea or vomiting Musc: Reports: limited range of motion Skin/Breast: Denies: changes in skin color or dry skin Neuro: Reports: numbness in extremities and weakness in extremities Psych: Denies: anxiety Sudhir/Lymph: Denies: easy bruising or easy bleeding Medications/Allergies Home Medications Medication Instructions Recorded Confirmed Last Taken Type melatonin 10 mg tablet,extended 10 mg PO .bedtime #30 tab 03/14/20 09/10/21 Unknown Rx release diazepam 5 mg tablet (Valium) 2.5 mg PO BID PRN #30 tab 06/19/21 09/10/21 Unknown Rx diclofenac sodium 1 % topical gel 2 g TOPICAL QID PRN #100 g 06/25/21 09/10/21 Unknown Rx ibuprofen 800 mg tablet 800 mg PO TID PRN #90 tab 07/11/21 09/10/21 Unknown Rx baclofen 20 mg tablet 20 mg PO TID #90 tab MDD 3 07/12/21 09/10/21 Unknown Rx [place] J Collar #1 ea 07/26/21 09/10/21 Unknown Rx tramadol 50 mg tablet 100 mg PO QID PRN 30 Days #240 tab 08/01/21 09/10/21 Unknown Rx MDD 8 sertraline 100 mg tablet (Zoloft) 100 mg PO .morning #30 tab 08/08/21 09/10/21 Unknown Rx sertraline 50 mg tablet (Zoloft) 50 mg PO .morning #30 tab 08/08/21 09/10/21 Unknown Rx trazodone 100 mg tablet 100 mg PO DIRECTED #60 tab 08/08/21 09/10/21 Unknown Rx esomeprazole magnesium 40 mg 40 mg PO DAILY #90 cap 09/10/21 09/10/21 Unknown Rx capsule,delayed release (Nexium) lisinopril 20 1 tab PO DAILY #90 tab 09/10/21 09/10/21 Unknown Rx mg-hydrochlorothiazide 25 mg tablet Allergies Allergy/AdvReac Type Severity Reaction Status Date / Time No Known Allergies Allergy Verified 09/12/21 06:50 PFSH Acute PFSH: Medical History Cervical disc disease Chronic thoracic back pain Facet arthropathy, lumbar Fibromyalgia Hx of receiving diagnoses in [place] prior to 2008 Generalized anxiety disorder High risk medication use Inflammatory arthritis Joint pain Lumbar stenosis Major depressive disorder, recurrent episode, moderate with anxious distress Myalgia Nicotine dependence, chewing tobacco, uncomplicated Opioid contract exists Psychiatric care Surgical History Hx of appendectomy Hx of cholecystectomy Family History Other CAD (coronary artery disease) Diabetes Hypertension Rheumatoid arthritis Stroke Denies family history of Lupus Chronic kidney disease (CKD) Anesthesia complication Social History Smoking and tobacco status: former smoker Second hand smoke exposure: No Alcohol intake: current Alcohol type: beer Lives independently: Yes History of recent travel: No Vitals/I&O/Wt Last Vital Signs Temp 98.4 F 09/12/21 06:40 Pulse 100 09/12/21 06:40 Resp 18 09/12/21 06:40 BP 136/106 09/12/21 06:40 Pulse Ox 97 09/12/21 06:40 Weight last 48 hrs Weight 285 lb Weight 285 lb Physical Exam Narrative: CONSTITUTIONAL: The patient is a normal appearing [] in no apparent distress. GENERAL: Patient in no acute distress. CARDIAC: Regular rate and rhythm. CHEST: Normal inspiratory effort, normal respiratory rate. ABDOMEN: Soft and nontender. SKIN: Clear, warm and intact. NEURO?PSYCH: The patient is alert and oriented to person, place and time. Sensorv /SILT Motor StrengthShoulder abduction C5 5/5Wrist extension C6 5/5Elbow extension C7 5/5Hand Power Systems Engineer C8 5/5Finger abduction T15/5 Radial/ Ulnar/ Median n intact LowerSensory (SILT)Motor StrengthHin flexion L2/3Ant/inner thigh 5/5Hip adduction L2/3 5/5Knee extension L4 Lat thigh, 5/5Toe dorsiflexion L5 5/5Ankle dorsiflexion L5/ V09Kumztes flexion S1 5/5 DTRBleeps 2+Triceps 2+Brachioradialis 2+Patellar 2+Achilles 2+ MUSCULOSKELETAL: [] UPPEREXTREMITIES: The patient had full active ROM in fingers, wrist, elbow, and shoulder. The patient demonstrated ability to fully flex/extend/abduct/adduct fingers, make ok sign, cross 2nd/3rd digits, extend 1st digit fully.. Radial pulse 2+, CR<2 seconds. LOWER EXTREMITIES: Pt has full, active ROM of toes, ankle, knee, and hip. Dorsalis pedis/posterior tibialis pulses 2+, CR<2 seconds. SPINE: Skin warm, dry, intact. Data : 09/10/21 14:20 A&P Assessment and plan (1) Cervical spondylosis with radiculopathy: ACDF C5/6, C6/7 Status: Acute Attestations Medical Necessity Statement*: failed conservative tx Coding Level of Care Code Acute Real Estate Executive Assistant for [facility] Fwd Diagnoses Cervical spondylosis with radiculopathy M47.22
--- NOTE | 2021-09-12 07:09 | ANES.PREANE2 ---
Pre-Anesthetic Assessment Height/Weight: Height 1.91 m Weight 129.274 kg Temp Pulse Resp BP Pulse Ox 98.4 F 100 18 136/106 97 09/12/21 06:40 09/12/21 06:40 09/12/21 06:40 09/12/21 06:40 09/12/21 06:40 Preop Diagnosis: cervical radiculopathy Operation Date: 09/12/21 07:40 Proposed Procedures p ACDF C5/6, C6/7--[id number](Not Applicable) - Shady Long, Familial anesthetic complications: None Was Beta Dariana taken within 24 hours: N/A Was Clonidine taken within 24 hours: N/A Last intake: Intake Last Liquid Date 09/11/21 Last Liquid Time 18:00 Last Solid Date 09/11/21 Last Solid Time 18:00 Social Tobacco (Chews) and No alcohol Exam alert, oriented x 3, clear to auscultation bilaterally and regular rate & rhythm Airway Submandibular: within normal limits Cervical ROM: Other (Limited extension , flexion) Mallampati: Class II Dentition: chipped Comments: Comments: Missing teeth CV/HEM Hypertension METS > 4 None reported Hepatic None reported GI Gastroesophageal Reflux Disease Metabolic None reported Musc/skel Fibromyalgia Neuropsych Anxiety (ROBE) and Depression Cervical spondylosis Lumbar stenosis Joint pain Inflammatory arthritis Myalgia Anesthetic Plan ASA status: 2 Anesthesia: Anesthesia Evaluation and General Other: We discussed risk and benefits of general anesthesia including PONV, sore throat (sometimes severe), corneal abrasion, positioning and peripheral nerve injuries, life threatening allergic reaction, post operative ICU admission requiring prolonged intubation, stroke, heart attack, , and rare incidences of recall. Patient consents to proceed with general anesthesia. Risk of > 500 ml blood loss (7ml/kg in children): No Medications/Allergies Home Medications Medication Instructions Recorded Confirmed Last Taken Type melatonin 10 mg tablet,extended 10 mg PO .bedtime #30 tab 03/14/20 09/12/21 1 Day Ago Rx release ~09/11/21 diazepam 5 mg tablet (Valium) 2.5 mg PO BID PRN #30 tab 06/19/21 09/12/21 2 Days Ago Rx ~09/10/21 diclofenac sodium 1 % topical gel 2 g TOPICAL QID PRN #100 g 06/25/21 09/10/21 Unknown Rx ibuprofen 800 mg tablet 800 mg PO TID PRN #90 tab 07/11/21 09/12/21 2 Days Ago Rx ~09/10/21 baclofen 20 mg tablet 20 mg PO TID #90 tab MDD 3 07/12/21 09/12/21 09/12/21 05:00 Rx [place] Liu Collar #1 ea 07/26/21 09/10/21 Unknown Rx tramadol 50 mg tablet 100 mg PO QID PRN 30 Days #240 tab 08/01/21 09/12/21 09/12/21 05:00 Rx MDD 8 sertraline 100 mg tablet (Zoloft) 100 mg PO .morning #30 tab 08/08/21 09/12/21 2 Days Ago Rx ~09/10/21 sertraline 50 mg tablet (Zoloft) 50 mg PO .morning #30 tab 08/08/21 09/12/21 2 Days Ago Rx ~09/10/21 trazodone 100 mg tablet 100 mg PO DIRECTED #60 tab 08/08/21 09/10/21 Unknown Rx esomeprazole magnesium 40 mg 40 mg PO DAILY #90 cap 09/10/21 09/12/21 09/12/21 05:00 Rx capsule,delayed release (Nexium) lisinopril 20 1 tab PO DAILY #90 tab 09/10/21 09/12/21 1 Day Ago Rx mg-hydrochlorothiazide 25 mg tablet ~09/11/21 Allergies Allergy/AdvReac Type Severity Reaction Status Date / Time No Known Allergies Allergy Verified 09/12/21 06:50 [facility] Anesthesia Medical History Cervical disc disease Chronic thoracic back pain Facet arthropathy, lumbar Fibromyalgia Hx of receiving diagnoses in [place] prior to 2008 Generalized anxiety disorder High risk medication use Inflammatory arthritis Joint pain Lumbar stenosis Major depressive disorder, recurrent episode, moderate with anxious distress Myalgia Nicotine dependence, chewing tobacco, uncomplicated Opioid contract exists Psychiatric care Surgical History Hx of appendectomy Hx of cholecystectomy Family History Other CAD (coronary artery disease) Diabetes Hypertension Rheumatoid arthritis Stroke Denies family history of Lupus Chronic kidney disease (CKD) Anesthesia complication Social History Smoking and tobacco status: former smoker Second hand smoke exposure: No Alcohol intake: current Alcohol type: beer Lives independently: Yes History of recent travel: No Data Anesthesia : 09/10/21 14:20 BMP 09/10/21 14:20 Sodium 140 Potassium 4.2 Chloride 102 Carbon Dioxide 27 BUN 18 Creatinine 1.2 Glucose 103 Calcium 8.6 Cardiac Studies: No Data to Display
--- NOTE | 2021-09-12 09:41 | PM.OP ---
Operative Report Date of procedure: September 12, 2021 Pre-op diagnosis: Preop Diagnosis cervical spondylosis with radiculopathy Post-op diagnosis: same Procedure done: 1. Anterior diskectomy C5/6 2. Anterior discectomy C6/7 3. Insertion of cage C5/6 4. Insertion of Cage C6/7 5. Instrumentation with anterior plate from C5-C7 6. Use of allograft Surgeon: Shady Long Appliance Service Technician: Dick Monge Appliance Service Technician: The surgical services assistant, Dick Monge, MARTHA was needed for his expertise under the microscope. He was important and necessary throughout the procedure to complete in a safe and timely manner. He assisted with patient positioning prepping and draping tissue retraction suctioning of the operative field protection of the dural sac and tissue closure Estimated blood loss (mL): 20 Procedure: 1. Anterior diskectomy C5/6 2. Anterior discectomy C6/7 3. Insertion of cage C5/6 4. Insertion of Cage C6/7 5. Instrumentation with anterior plate from C5-C7 6. Use of allograft The patient was taken to the operating room, where he underwent general endotracheal anesthesia without complications. He was then positioned supine on the operating table, and all areas of impingement were well padded. The arms were carefully padded and tucked at his sides. A roll was placed between the shoulder blades.. An x-ray was done to determine the appropriate level for the skin incision. The entire neck was then sterilely prepped and draped in the usual fashion. Neuromonitoring was attached prior to prepping. A transverse skin incision was made and carried down to the platysma muscle. This was then split in line with its fibers. Blunt dissection was carried down medial to the carotid sheath and lateral to the trachea and esophagus until the anterior cervical spine was visualized. A needle was placed into a disc and an x-ray was done to determine its location. The longus colli muscles were then elevated bilaterally with the electrocautery unit. Self-retaining retractors were placed deep to the longus colli muscle. Attention was brought to the C5/6 level that was confirmed on x-ray. A caspar pin was placed into the C5 vertebrae and the C6 vertebrae. The disk space was then distracted. The microscope was then brought in. A radical anterior discectomies were performed at C5/6. This included complete removal of the anterior annulus, nucleus, and posterior annulus. The posterior longitudinal ligament was removed as were the posterior osteophytes. Foraminotomies were then accomplished bilaterally. This was done using a high speed fuad, kerrison rongeurs and curretes Once all of this was accomplished, the curved currette was used to check for any residual compression. The central canal was wide open as were the foramen. A high-speed bur was used to remove the cartilaginous endplates above and below the interspace. Bleeding cancellous bone was exposed. The disc space were measured and appropriate size cage were placed sterilely onto the field. Allograft graft was packed into the cages. The cage was then placed and there was good juxtaposition against the bleeding decorticated surfaces and good distraction of each interspace. Attention was brought to the next interspace. The [place] pins were removed. Bone wax was used to prevent any bleeding from occurring at the pin sites. Attention was brought to the C6/7 level that was confirmed on x-ray. A caspar pin was placed into the C6 vertebrae and the C7 vertebrae. The disk space was then distracted. The microscope was then brought in. A radical anterior discectomies were performed at C6/7. This included complete removal of the anterior annulus, nucleus, and posterior annulus. The posterior longitudinal ligament was removed as were the posterior osteophytes. Foraminotomies were then accomplished bilaterally. This was done using a high speed fuad, kerrison rongeurs and curretes Once all of this was accomplished, the curved currette was used to check for any residual compression. The central canal was wide open as were the foramen. A high-speed bur was used to remove the cartilaginous endplates above and below the interspace. Bleeding cancellous bone was exposed. The disc space were measured and appropriate size cage were placed sterilely onto the field. Allograft graft was packed into the cages. The cage was then placed and there was good juxtaposition against the bleeding decorticated surfaces and good distraction of each interspace. Attention was brought to the next interspace. The Olean pins were removed. Bone wax was used to prevent any bleeding from occurring at the pin sites. The appropriate size anterior cervical locking plate was chosen and bent into gentle lordosis. One screws were then placed into each of the vertebral bodies at C5, C6 and C7. There was excellent purchase. A final x-ray was done confirming good position of the hardware and Cages. The locking screws were then applied, also with excellent purchase. Following a final copious irrigation, there was good hemostasis and no dural leaks. The carotid pulse was strong. The wounds were then closed in layers using 2-0 Vicryl suture for the platysma muscle, 2-0 Vicryl suture for the subcutaneous tissue, and 4-0 monocryl suture in a subcuticular skin closure. Glue was placed followed by application of a sterile dressing. The drain was hooked to bulb suction. A soft collar was applied. The patient was then carefully returned to the supine position on his hospital bed where he was reversed and extubated and taken to the recovery room having tolerated the procedure well.
[2021-09-12] MEDS: fentaNYL 50 mcg/mL INJ 2mL IVP (10:00)
[2021-09-12] MEDS: HYDROmorphone 1 mg/mL INJ 1 mL 0.5 MG IVP (10:09)
[2021-09-12] MEDS: HYDROcodone-acetaminophen 5-325 mg Tablet 1 TAB PO (10:56)
--- NOTE | 2021-09-12 15:11 | ANE.PACU2 ---
Inpatient post-anesthesia follow up: Airway intact: Yes Vital signs: Temperature 97.7 F Pulse Rate 91 Respiratory Rate 18 Blood Pressure 144/101 Pulse Oximetry 93 Oxygen Delivery Me thod Room Air Oxygen Flow Rate Fraction of Inspir ed Oxygen Hydration adequate: Yes Nausea and vomiting: No Pain level: 6 Mental status: Baseline
== END 2021-09-12 11:20 | disposition home or self-care (01) ==
PROVIDERS: Anesthesiology; PCP Family Medicine; Visit Provider Orthopaedic Surgery
PROC: 0RB30ZZ Excision of Cervical Vertebral Disc, Open Approach (ICD-10-PCS; CPT 22551; principal; 2021-09-12 07:40)
DX: M47.22 Other spondylosis with radiculopathy, cervical region (principal); Z79.891 Long term (current) use of opiate analgesic; Z82.49 Family history of ischemic heart disease and other diseases of the circulatory system; Z83.3 Family history of diabetes mellitus; Z87.891 Personal history of nicotine dependence; M79.10 Myalgia, unspecified site
CPT/HCPCS: 20930; 22551; 22552; 22845; 22853 ×2; 36415; 72040; 76000; 80048; C1713; C9359; J0690; J1100; J1170; J2250; J2405; J2704; J3010; J3490; J7030

== ENCOUNTER → 2021-09-27 09:53 | Outpatient (BNVA) | payer MEDICAID, SELFPAY | PROVIDERS: PCP Family Medicine; Visit Provider Anesthesiology Pain Medicine | DX: G89.29 Other chronic pain (principal); M54.6 Pain in thoracic spine; M47.816 Spondylosis without myelopathy or radiculopathy, lumbar region; M48.061 Spinal stenosis, lumbar region without neurogenic claudication; M50.90 Cervical disc disorder, unspecified, unspecified cervical region; M47.812 Spondylosis without myelopathy or radiculopathy, cervical region; M54.12 Radiculopathy, cervical region; M25.50 Pain in unspecified joint; M79.10 Myalgia, unspecified site; R25.3 Fasciculation; Z79.891 Long term (current) use of opiate analgesic; Z87.891 Personal history of nicotine dependence | CPT/HCPCS: 99214 ==

== ENCOUNTER 2021-10-19 08:34 | Emergency (ER) | payer MEDICAID, SELFPAY ==
[2021-10-19 08:42] VITALS: BP 155/104; PULSE 113; RESP 16; TEMP 36.7; O2SAT 96; BMI 35.6
--- NOTE | 2021-10-19 09:02 | XR_ITS ---
WS: [id number] KUB, AP view, 10/19/2021 Clinical Data: bloating, post surgical Comparison: None. Findings: No abnormal intraabdominal masses or calcifications are seen. There is no dilatated small bowel or ev idence of obstruction. There are clips in the right upper quadrant from a cholecystectomy. XR/XR KUB portable [id number] Impression: Negative KUB.
[2021-10-19 09:07] VITALS: BP 151/114; PULSE 98; RESP 16; TEMP 36.7; O2SAT 94
--- NOTE | 2021-10-19 09:12 | W.ED.ABDPA2 ---
HPI - Abdominal Pain General: Chief Complaint: Abdominal Pain Stated Complaint: pain from neck surgery, ABD pain Time Seen by Provider: 10/19/21 08:43 History of Present Illness: Patient is here stating that his abdomen is hurting now since surgery and is having some diarrhea. Patient also said he had some drainage from his anterior neck wound early last night when he squeezed on it but that is improved. Patient says neck is sore since having the c-collar removed Associated Symptoms: Reports change in stool character and other (Decreased appetite); Denies chills, fever(s), nausea and vomiting Review of Systems Const: Denies: fever(s), chills or body aches Eyes: Denies: eye discomfort ENMT: Denies: throat pain Card: Denies: chest pain Resp: Denies: dyspnea GI: Reports: abdominal pain, change in stool character and other (Decreased appetite); Denies: nausea or vomiting Musc: Reports: neck pain Skin/Breast: Denies: rash Neuro: Denies: headache(s) Psych: Denies: depression or suicidal ideation [facility] ED PFSH: Medical History Cervical disc disease Chronic thoracic back pain Facet arthropathy, lumbar Fibromyalgia Hx of receiving diagnoses in [place] prior to 2008 Generalized anxiety disorder High risk medication use Inflammatory arthritis Joint pain Lumbar stenosis Major depressive disorder, recurrent episode, moderate with anxious distress Myalgia Nicotine dependence, chewing tobacco, uncomplicated Opioid contract exists Psychiatric care Surgical History Hx of appendectomy Hx of cholecystectomy Family History Other CAD (coronary artery disease) Diabetes Hypertension Rheumatoid arthritis Stroke Denies family history of Lupus Chronic kidney disease (CKD) Anesthesia complication Social History Smoking and tobacco status: former smoker Second hand smoke exposure: No Alcohol intake: current Alcohol intake frequency: holidays/special occasions only Alcohol type: beer Lives independently: Yes History of recent travel: No Physical Exam Const: COMMON NORMALS: no acute distress, patient oriented x3 and alert HENMT: COMMON NORMALS: normocephalic and external ears normal HEAD & SCALP: normocephalic EXTERNAL EAR: Yes external ears normal Eye: COMMON NORMALS: EOMs intact bilaterally Neck/C-Spine: COMMON NORMALS: no JVD OTHER: Tenderness to the muscles of the base of the skull down through the trapezius. Resp: COMMON NORMALS: normal respiratory effort and No use of accessory muscles Cardio: COMMON NORMALS: no JVD GI: INSPECTION: Yes normal to inspection AUSCULTATION: Yes Hypoactive bowel sounds present PALPATION: Yes Tenderness to palpation present (GI) (Generalized) PERCUSSION: dullness to percussion Extremity: COMMON NORMALS: normal to inspection and full ROM Neuro: COMMON NORMALS: patient oriented x3 SENSORIUM/ORIENTATION: Yes alert Psych: COMMON NORMALS: mental status grossly normal Skin: COMMON NORMALS: no rashes or lesions noted GENERAL SKIN EXAM: no rashes or lesions noted Course Vital Signs: Vital signs: Vital Signs Temperature 98.0 F 10/19/21 09:07 Pulse Rate 98 10/19/21 09:07 Respiratory Rate 16 10/19/21 09:07 Blood Pressure 130/103 10/19/21 10:14 Pulse Oximetry 92 10/19/21 10:14 MDM - Abdominal Pain Medical Decision Making Patient presents with postop neck pain since having collar taken off. Also having some diarrhea. Also having some anxiety. Laboratories x-ray and CT were performed. CT and x-rays are negative for any concerning findings. Laboratories show no signs affection does show slightly decreased potassium which would be consistent with his diarrhea and also since patient is on potassium replacement. Patient was given medication to help with the diarrhea and his neck pain. Norflex did a great job to help him feel better and he is almost pain-free after that. We will stop his baclofen try cyclobenzaprine patient follow-up primary care provider and with his surgeon to keep appointment next week. Lab Data : 10/19/21 09:25 10/19/21 09:25 Labs/Radiology: Radiology Impressions KUB X-Ray 10/19/21 09:02 Impression: Negative KUB. Abdomen/Pelvis CT 10/19/21 10:05 Impression: Negative for acute intra-abdominal or pelvic abnormalities. Laboratory Results WBC 5.7 10^3/uL (4.0-10.0) 10/19/21 09:25 RBC 5.09 10^6/uL (4.1-5.3) 10/19/21 09:25 Hgb 16.3 g/dL (11.7-16.6) 10/19/21 09:25 Hct 44.5 % (42.0-52.0) 10/19/21 09:25 MCV 87.4 fl (80-94) 10/19/21 09:25 MCH 32.0 pg (28.0-34.0) 10/19/21 09:25 MCHC 36.6 g/dL (30.0-36.0) H 10/19/21 09:25 RDW 12.4 % (12.1-15.1) 10/19/21 09:25 Plt Count 225 10^3/cmm (130-400) 10/19/21 09:25 MPV 10.4 fL (7.4-10.4) 10/19/21 09:25 Neut % (Auto) 51.4 % 10/19/21 09:25 Lymph % (Auto) 31.7 % 10/19/21 09:25 Angelina % (Auto) 14.2 % 10/19/21 09:25 Eos % (Auto) 2.1 % 10/19/21 09:25 Baso % (Auto) 0.4 % 10/19/21:25 Neut # (Auto) 2.91 10^3/uL (1.8-7.7) 10/19/21 09:25 Lymph # (Auto) 1.8 10^3/uL (0.8-4.8) 10/19/21 09:25 Angelina # (Auto) 0.8 10^3/uL (0.2-0.9) 10/19/21 09:25 Eos # (Auto) 0.1 10^3/uL (0.0-0.8) 10/19/21 09:25 Baso # (Auto) 0.0 10^3/uL (0.0-0.1) 10/19/21 09:25 Nucleated RBC % (auto) 0 % 10/19/21:25 Nucleated RBCs # 0.0 /100WBC 10/19/21 09:25 Sodium 134 mmol/L (136-145) L 10/19/21 09:25 Potassium 3.3 mmol/L (3.5-5.1) L 10/19/21 09:25 Chloride 97 mmol/L (98-107) L 10/19/21 09:25 Carbon Dioxide 26 mmol/L (22-29) 10/19/21 09:25 Anion Gap 14.3 (5-19) 10/19/21 09:25 BUN 14 mg/dL (6-20) 10/19/21 09:25 Creatinine 0.9 mg/dL (0.7-1.2) 10/19/21 09:25 GFR Calculation 90.1 mL/min (90-130) 10/19/21 09:25 Glucose 99 mg/dL (65-115) 10/19/21 09:25 Calculated Osmolality 279 mOsm/kg (285-295) L 10/19/21 09:25 Calcium 9.3 mg/dL (8.5-10.5) 10/19/21 09:25 Discharge Plan Discharge Patient Disposition: Home Clinical Impression: Post-operative pain, Gastrointestinal functional disorder, postoperative, Anxiety Condition: Stable Prescriptions: New cyclobenzaprine 5 mg tablet 5 mg PO TID PRN (Reason: muscle spasm) Qty: 20 0RF Lomotil 2.5-0.025 mg tablet 1 tab PO TID PRN (Reason: diarrhea/anxiety) Qty: 14 0RF Discontinued baclofen 20 mg tablet 20 mg PO TID MDD 3 Qty: 90 0RF No Action diazepam [Valium] 5 mg tablet 2.5 mg PO BID PRN (Reason: anxiety) Qty: 30 2RF ibuprofen 800 mg tablet 800 mg PO TID PRN (Reason: pain) Qty: 90 0RF (DME) [place] J Collar See Rx Instructions .Route .MEDSUPPLY Qty: 1 0RF Rx Instructions: As directed tramadol 50 mg tablet 100 mg PO QID MDD 8 PRN (Reason: chronic pain) 30 Days Qty: 240 0RF Rx Instructions: may fill 30 days after previous refill hydrocodone-acetaminophen 5-325 mg tablet 1 - 2 tab PO Q4H PRN (Reason: pain) 7 Days Qty: 40 0RF potassium gluconate 595 mg (99 mg) Tablet 595 mg PO DAILY 0RF Zoloft 100 mg tablet 100 mg PO QAM PRN (Reason: moods) 0RF trazodone 100 mg tablet 100 - 200 mg PO BEDTIME PRN (Reason: Sleep) 0RF Rx Instructions: May take one tablet one hour prior to bedtime as needed for sleep, may repeat dose in one hour if not asleep. Nexium 40 mg capsule,delayed release(DR/EC) 40 mg PO QAM 0RF Rx Instructions: Pt. has tried and failed omeprazole and pantoprazole lisinopril-hydrochlorothiazide 20-25 mg tablet 1 tab PO QAM 0RF Zoloft 50 mg tablet 50 mg PO QAM PRN (Reason: moods) 0RF melatonin 10 mg tablet extended release 10 mg PO BEDTIME PRN (Reason: Sleep) 0RF Discharge Orders: Discharge ED (Routine); Ordered 10/19/21 Ordered By: Nicho Richardson Referrals: Jossy Nelson DO [Primary Care Provider] - Discharge Diet: Advance as tolerated Discharge Activity: Resume usual activity Activity Restrictions/Additional Instructions: Follow-up with medical provider as directed. Take medications as prescribed. Return to the ER or your medical provider if condition worsens. Please read and understand discharge instructions. If any questions ask please. Make sure you get your potassium level checked next week to make sure that you are taking a proper amount of potassium. Coding Level of Care Code ED Hydraulic Barker Operator for Chg Fwd Exam Comprehensive
[2021-10-19 09:36] LABS: Basophils % 0.4 %; Eosinophils # 0.1 10^3/uL (0.0-0.8); Eosinophils % 2.1 %; Hematocrit 44.5 % (42.0-52.0); Hemoglobin 16.3 g/dL (11.7-16.6); Lymphocytes # 1.8 10^3/uL (0.8-4.8); Lymphocytes % 31.7 %; Mean Corpuscular HGB Conc 36.6 g/dL (30.0-36.0); Mean Corpuscular Volume 87.4 fl (80-94); Mean Platelet Volume 10.4 fL (7.4-10.4); Monocytes # 0.8 10^3/uL (0.2-0.9); Monocytes % 14.2 %; Neutrophils # 2.91 10^3/uL (1.8-7.7); Neutrophils % 51.4 %; Nucleated Red Blood Cells % 0 %; Platelet Count 225 10^3/cmm (130-400); Red Blood Count 5.09 10^6/uL (4.1-5.3); Red Cell Distribution Width 12.4 % (12.1-15.1); White Blood Count 5.7 10^3/uL (4.0-10.0)
[2021-10-19] MEDS: sodium chloride 0.9% 1,000 ML 999 ML IV (09:42)
[2021-10-19] MEDS: orphenadrine 30 mg/mL Inj 2 mL 60 MG IVP (09:43)
[2021-10-19] MEDS: ketorolac 30 mg/mL INJ IVP (09:43)
[2021-10-19] MEDS: ondansetron 2 mg/ML SDV 2 mL 4 MG IVP (09:44)
[2021-10-19 09:53] LABS: Anion Gap 14.3 (5-19); Blood Urea Nitrogen 14 mg/dL (6-20); Calcium 9.3 mg/dL (8.5-10.5); Carbon Dioxide 26 mmol/L (22-29); Chloride 97 mmol/L (98-107); Glomerular Filtration Rate 90.1 mL/min (90-130); Glucose 99 mg/dL (65-115); Osmolality Calculated 279 mOsm/kg (285-295); Potassium 3.3 mmol/L (3.5-5.1); Sodium 134 mmol/L (136-145)
--- NOTE | 2021-10-19 10:05 | CT_ITS ---
WS: [id number] CT scan of the abdomen and pelvis without Oral and with IV contrast. Additional two-dimensional coron al and sagittal reconstruction was performed. 10/19/2021 Clinical Data: pain, diarrhea Comparison: None. DLP: 1875.[address] scans at [facility] use at least one of these dose optimization techniques: automated e xposure control; mA and/or kV adjustment per patient size (includes targeted exams where dose is matc hed to clinical indication); or iterative reconstruction. Findings: The lower lungs show no nodules, masses or effusions. The liver, spleen, adrenal glands and pancreas are normal. There are several low density areas in the liver which are probably cysts. There are clips in the gallbladder fossa from a cholecystectomy. The kidneys show equal bilateral contrast excretion with no cyst or masses. No renal calculi or hydro nephrosis is seen. The abdominal aorta is normal in size. No appendicitis or diverticulitis is seen. The stomach, small bowel and colon show no abnormalities. No abscess, adenopathy, ascites, mass, obstruction or free air is seen. The bladder is unremarkable. No inguinal hernia is seen. The bones of the lower thorax, lumbar spine, pelvis, and hips toe only minimal osteoarthritis of the lumbar vertebral bodies. CT/CT abdomen pelvis w con* [id number] Impression: Negative for acute intra-abdominal or pelvic abnormalities.
[2021-10-19 10:14] VITALS: BP 130/103; O2SAT 92
[2021-10-19] MEDS: potassium chloride ER 20 mEq Tablet PO (10:17)
[2021-10-19] MEDS: iohexol 300 mg/mL 100 mL Btl IV (10:41)
--- NOTE | 2021-10-19 11:11 | PC.PHAR ---
pt states he takes care of his own medications-pt states he takes his sertraline 50mg and 100mg prn rx written for 150mg daily-pt states he no longer takes prednisone prn last filled 08/27/21 30d/s for 10mg daily prn for 4-5 days for joint pain or flares-notes are made in the pharmacy comments
[2021-10-19 11:30] VITALS: BP 122/72; PULSE 82; RESP 16; TEMP 36.8; O2SAT 94
[2021-10-19 11:47] VITALS: BP 122/72; PULSE 82; RESP 16; TEMP 36.8; O2SAT 94
== END 2021-10-19 11:45 | disposition home or self-care (01) ==
PROVIDERS: Emergency Provider Nurse Practitioner Family; PCP Family Medicine
DX: G89.18 Other acute postprocedural pain (principal); R10.9 Unspecified abdominal pain; K91.89 Other postprocedural complications and disorders of digestive system; F41.9 Anxiety disorder, unspecified; Z87.891 Personal history of nicotine dependence
CPT/HCPCS: 74018; 74177; 80048; 85025; 96361; 96374; 96375; 99284; J1885; J2360; J2405; J7030; Q9967

== ENCOUNTER → 2021-10-23 09:34 | Outpatient (BNVA) | payer MEDICAID, SELFPAY | PROVIDERS: PCP Family Medicine; Visit Provider Physician Assistant | DX: G89.18 Other acute postprocedural pain (principal) | CPT/HCPCS: 72040 ==

== ENCOUNTER → 2021-11-05 10:03 | Outpatient (BNVA) | payer MEDICAID, SELFPAY | PROVIDERS: PCP Family Medicine; Visit Provider Anesthesiology Pain Medicine | DX: G89.29 Other chronic pain (principal); M50.90 Cervical disc disorder, unspecified, unspecified cervical region; M47.812 Spondylosis without myelopathy or radiculopathy, cervical region; M54.12 Radiculopathy, cervical region; M48.061 Spinal stenosis, lumbar region without neurogenic claudication; M47.816 Spondylosis without myelopathy or radiculopathy, lumbar region; M54.6 Pain in thoracic spine; M79.10 Myalgia, unspecified site; R25.3 Fasciculation; Z79.891 Long term (current) use of opiate analgesic | CPT/HCPCS: 99214 ==

== ENCOUNTER → 2021-12-04 09:36 | Outpatient (BNVA) | payer MEDICAID, SELFPAY | PROVIDERS: PCP Family Medicine; Visit Provider Physician Assistant | DX: G89.18 Other acute postprocedural pain (principal); Z47.89 Encounter for other orthopedic aftercare; Z98.890 Other specified postprocedural states; Z98.1 Arthrodesis status | CPT/HCPCS: 72040; 99213; 99999 ==

== ENCOUNTER → 2021-12-13 13:10 | Outpatient (BNVA) | payer MEDICAID, SELFPAY | PROVIDERS: PCP Family Medicine; Visit Provider Nurse Practitioner Psychiatric/Mental Health | DX: F33.1 Major depressive disorder, recurrent, moderate (principal); F41.1 Generalized anxiety disorder; M79.7 Fibromyalgia; F17.220 Nicotine dependence, chewing tobacco, uncomplicated | CPT/HCPCS: 99214 ==

== ENCOUNTER → 2022-01-01 13:01 | Outpatient (BNVA) | payer MEDICAID, SELFPAY | PROVIDERS: PCP Family Medicine; Visit Provider Physician Assistant | DX: M51.36 Other intervertebral disc degeneration, lumbar region (principal); M48.061 Spinal stenosis, lumbar region without neurogenic claudication | CPT/HCPCS: 72110; 99213; 99214 ==

== ENCOUNTER → 2022-01-15 10:39 | Outpatient (BNVA) | payer MEDICAID, SELFPAY | PROVIDERS: PCP Family Medicine; Visit Provider Nurse Practitioner Family | DX: M47.812 Spondylosis without myelopathy or radiculopathy, cervical region (principal); R53.83 Other fatigue; R53.81 Other malaise | CPT/HCPCS: 80053; 82306; 84403; 84439; 84443; 84481; 86618; 86666; 86757 ==

== ENCOUNTER → 2022-01-17 10:01 | Outpatient (BNVA) | payer MEDICAID, SELFPAY | PROVIDERS: PCP Family Medicine; Visit Provider Anesthesiology Pain Medicine | DX: G89.29 Other chronic pain (principal); M47.816 Spondylosis without myelopathy or radiculopathy, lumbar region; M48.061 Spinal stenosis, lumbar region without neurogenic claudication; M50.90 Cervical disc disorder, unspecified, unspecified cervical region; M47.812 Spondylosis without myelopathy or radiculopathy, cervical region; M54.6 Pain in thoracic spine; G57.93 Unspecified mononeuropathy of bilateral lower limbs; M25.50 Pain in unspecified joint; M79.10 Myalgia, unspecified site; R25.3 Fasciculation; Z79.891 Long term (current) use of opiate analgesic; Z87.891 Personal history of nicotine dependence | CPT/HCPCS: 99214 ==

== ENCOUNTER → 2022-02-06 16:26 | Outpatient (BNVA) | payer MEDICAID, SELFPAY | PROVIDERS: PCP Family Medicine; Visit Provider Nurse Practitioner Family | DX: R50.9 Fever, unspecified (principal) | CPT/HCPCS: 87400; 87635 ==

== ENCOUNTER → 2022-02-11 09:22 | Outpatient (BNVA) | payer MEDICAID, SELFPAY | PROVIDERS: PCP Family Medicine; Visit Provider Nurse Practitioner Family | DX: R50.9 Fever, unspecified (principal); R53.83 Other fatigue; T78.1XXA Other adverse food reactions, not elsewhere classified, initial encounter | CPT/HCPCS: 86003; 86008 ==

== ENCOUNTER 2022-02-27 11:02 | Outpatient (CLI) | payer MEDICAID, SELFPAY ==
--- NOTE | 2022-02-27 11:45 | MR_ITS ---
WS: [id number] MRI LUMBAR SPINE NONCONTRAST HISTORY: lower back pain COMPARISON: 08/23/2019 TECHNIQUE: Sagittal and axial multisequence imaging is submitted. Straightening and very mild reversal of the upper lumbar curvature. 2 mm retrolisthesis of L3. Simila r alignment was noted on the prior examination from 2019. Disc spaces and vertebral body heights are well-preserved. Conus terminates normally at L1. L1-L2: Normal. L2-L3: Mild disc bulging. No stenosis. L3-L4: Mild annular disc bulging with mild ligamentum flavum hypertrophy. Disc encroaches and mildly deforms the ventral thecal sac. There is contact on the traversing L4 nerve roots. No significant for aminal stenosis. L4-L5: Mild annular disc bulging with a small disc protrusion in the LEFT foramen with annular fissur e. Disc protrusion does contact the exiting LEFT L4 nerve root. Mild to moderate LEFT foraminal steno sis and very minimal RIGHT foraminal stenosis. Mild subarticular recess encroachment due to the disc bulging. There is also mild contact on the traversing L5 nerve roots bilaterally. L5-S1: Mild disc bulging and osteophytic ridging. Very mild LEFT foraminal narrowing. Paravertebral soft tissues are normal. MR/MR lumbar spine wo con* [id number] IMPRESSION: 1. LEFT foraminal disc protrusion at L4-5 causing at least a [id number] stenosis with a disc contacting the exiting L4 nerve root. New disc protrusion since 08/23/2019. 2. Disc bulging at L3-4 and L4-5 contacts the traversing nerve roots at each l evel but no high-grade subarticular stenosis. 3. No high-grade central stenosis.
== END 2022-02-27 11:03 | disposition home or self-care (01) ==
LOC: RAD 11:02
PROVIDERS: PCP Family Medicine; Visit Provider Physician Assistant
DX: G89.29 Other chronic pain (principal); M51.26 Other intervertebral disc displacement, lumbar region
CPT/HCPCS: 72148

== ENCOUNTER → 2022-03-05 11:47 | Outpatient (BNVA) | payer MEDICAID, SELFPAY | PROVIDERS: PCP Family Medicine; Visit Provider Physician Assistant | DX: Z98.1 Arthrodesis status; M54.16 Radiculopathy, lumbar region; Z47.89 Encounter for other orthopedic aftercare | CPT/HCPCS: 72040; 99214; 99215 ==

== ENCOUNTER → 2022-03-27 09:55 | Outpatient (BNVA) | payer MEDICAID, SELFPAY | PROVIDERS: PCP Family Medicine; Visit Provider Anesthesiology Pain Medicine | DX: G89.29 Other chronic pain (principal); M48.061 Spinal stenosis, lumbar region without neurogenic claudication; M47.816 Spondylosis without myelopathy or radiculopathy, lumbar region; M50.90 Cervical disc disorder, unspecified, unspecified cervical region; M54.12 Radiculopathy, cervical region; M47.812 Spondylosis without myelopathy or radiculopathy, cervical region; M79.604 Pain in right leg; M79.605 Pain in left leg; Z87.891 Personal history of nicotine dependence | CPT/HCPCS: 99214 ==

== ENCOUNTER → 2022-04-16 13:01 | Outpatient (BNVA) | payer MEDICAID, SELFPAY | PROVIDERS: PCP Family Medicine; Visit Provider Anesthesiology Pain Medicine | DX: M54.16 Radiculopathy, lumbar region (principal); M79.604 Pain in right leg; M79.605 Pain in left leg; Z87.891 Personal history of nicotine dependence | CPT/HCPCS: 64483; 64484; J1100; J3490 ==

== ENCOUNTER → 2022-04-29 10:00 | Outpatient (BNVA) | payer MEDICAID, SELFPAY | PROVIDERS: PCP Family Medicine; Visit Provider Anesthesiology Pain Medicine | DX: G89.29 Other chronic pain (principal); M47.812 Spondylosis without myelopathy or radiculopathy, cervical region; M54.12 Radiculopathy, cervical region; M50.90 Cervical disc disorder, unspecified, unspecified cervical region; M48.061 Spinal stenosis, lumbar region without neurogenic claudication; M47.816 Spondylosis without myelopathy or radiculopathy, lumbar region; M54.6 Pain in thoracic spine; M79.604 Pain in right leg; M79.605 Pain in left leg; R25.3 Fasciculation; M79.10 Myalgia, unspecified site; M25.50 Pain in unspecified joint | CPT/HCPCS: 99214 ==

== ENCOUNTER 2022-05-22 09:46 | Outpatient (CLI) | payer MEDICAID, SELFPAY ==
[2022-05-22] MEDS: iohexol 350 mg/mL 100 mL Btl IV (10:10)
--- NOTE | 2022-05-22 10:30 | CT_ITS ---
WS: [id number] CT CERVICAL SPINE WITH CONTRAST TECHNIQUE: CT of the cervical spine coronal and sagittal reformatted images post contrast. CLINICAL INFORMATION: pain COMPARISON: MRI August 02, 2019 DLP: 657.[address] scans at [facility] use at least one of these dose optimization techniques: automated e xposure control; mA and/or kV adjustment per patient size (includes targeted exams where dose is matc hed to clinical indication); or iterative reconstruction. FINDINGS: Straightening with slight reversal normal cervical lordosis. Prior postoperative changes C5-C7 with A CDF. Interbody bony fusion C5-C6 and C6-C7. Evidence of bony bridging beyond the confines of the jacoby ts. Slight backing out of the C5 fixation screw compared to the original intraoperative imaging.Sligh t retrolisthesis C3 on C4. C2-C3: No significant disc bulging. Spinal canal and foramen are patent. C3-C4: Disc osteophytic ridging. Slight retrolisthesis. Moderate LEFT and mild RIGHT bony foraminal n arrowing. Mild central canal stenosis. Mild facet arthropathy. C4-C5: Mild RIGHT greater than LEFT bony foraminal narrowing. Mild facet arthropathy. Spinal canal is patent. C5-C6: Postoperative changes ACDF. Mild facet arthropathy. Spinal canal and foramen are patent. C6-C7: Disc osteophytic ridging. Moderate LEFT and mild RIGHT bony foraminal narrowing. C7-T1: Mild RIGHT and no significant LEFT foraminal narrowing. Spinal canal is patent. Normal posterior fossa. Mastoid air cells well aerated. 7 mm low-attenuation RIGHT thyroid nodule. Normal posterior nasopharynx. CT/CT cervical spine w con [id number] IMPRESSION: 1. Straightening of the normal cervical lordosis. 2. Prior postoperative changes ACDF C5-C7 with interbody fusion grafts. Eviden ce of bony bridging beyond the confines of the grafts. Slight backing out of th e C5 fixation screw compared to the original intraoperative imaging. 3. Slight retrolisthesis C3 on C4 with mild central canal stenosis. 4. Mild to moderate bony foraminal narrowing worse at LEFT C3-C4, RIGHT C4-C5, LEFT C6-C7 and RIGHT C7-T1.
== END 2022-05-22 09:47 | disposition home or self-care (01) ==
LOC: RAD 09:47
PROVIDERS: PCP Family Medicine; Visit Provider Physician Assistant
DX: Z98.1 Arthrodesis status (principal); M48.02 Spinal stenosis, cervical region
CPT/HCPCS: 72126

== ENCOUNTER → 2022-05-23 09:43 | Outpatient (BNVA) | payer MEDICAID, SELFPAY | PROVIDERS: PCP Family Medicine; Visit Provider Orthopaedic Surgery | DX: M54.50 Low back pain, unspecified (principal); M79.604 Pain in right leg; M79.605 Pain in left leg; M47.22 Other spondylosis with radiculopathy, cervical region | CPT/HCPCS: 99214 ==

== ENCOUNTER → 2022-05-27 10:00 | Outpatient (BNVA) | payer MEDICAID, SELFPAY | PROVIDERS: PCP Family Medicine; Visit Provider Anesthesiology Pain Medicine | DX: G89.29 Other chronic pain (principal); M47.816 Spondylosis without myelopathy or radiculopathy, lumbar region; M47.812 Spondylosis without myelopathy or radiculopathy, cervical region; M48.061 Spinal stenosis, lumbar region without neurogenic claudication; M79.604 Pain in right leg; M79.605 Pain in left leg; M54.6 Pain in thoracic spine; M54.12 Radiculopathy, cervical region; M50.90 Cervical disc disorder, unspecified, unspecified cervical region; R25.3 Fasciculation; Z87.891 Personal history of nicotine dependence | CPT/HCPCS: 99213; 99214 ==

== ENCOUNTER 2022-06-24 05:52 | Day surgery (SDC) | payer MEDICAID, SELFPAY ==
[2022-06-17 10:18] VITALS: BMI 33.5
--- NOTE | 2022-06-17 16:16 | P.ANESASSM_ITS ---
Pre-Anesthetic Assessment Height/Weight: Height 1.93 m Weight 124.738 kg Preop Diagnosis: cervical radiculopathy Operation Date: 06/24/22 10:20 Proposed Procedures p Anterior Cervical Discectomy & Fusion C4/5 C5/6 C6/7 [id number]/(Not Applicable) - Shady Long DO s Cervical Decompression(Not Applicable) - Shady Long DO Familial anesthetic complications: none Was Beta Dariana taken within 24 hours: N/A Was Clonidine taken within 24 hours: N/A Social Tobacco (Chews) and No alcohol Exam alert, oriented x 3, clear to auscultation bilaterally and regular rate & rhythm Airway Submandibular: within normal limits Cervical ROM: Other (Slight limitation to extension) Mallampati: Class II Dentition: chipped CV/HEM Hypertension GI Gastroesophageal Reflux Disease Metabolic Morbid Obesity [facility] Fibromyalgia, Lower Back Pain and Osteoarthritis/DJD Neuropsych Anxiety and Depression Anesthetic Plan ASA status: 3 Anesthesia: General Medications/Allergies Home Medications Medication Instructions Recorded Confirmed Last Taken Type [place] J Collar #1 ea 07/26/21 05/27/22 Unknown Rx lisinopril 20 1 tab PO QAM 10/19/21 06/17/22 06/17/22 History mg-hydrochlorothiazide 25 mg tablet hydroxyzine pamoate 50 mg capsule 50 mg PO BID PRN anxiety #60 caps 03/07/22 06/17/22 Unknown Rx (Vistaril) trazodone 100 mg tablet 100 mg PO DIRECTED #60 tabs 03/07/22 06/17/22 06/16/22 Rx ibuprofen 800 mg tablet 800 mg PO TID PRN pain #90 tabs 03/27/22 06/17/22 06/16/22 Rx cyclobenzaprine 5 mg tablet 5 mg PO TID PRN muscle spasm #60 04/29/22 06/17/22 06/16/22 Rx tabs tramadol 50 mg tablet 100 mg PO QID PRN chronic pain 30 04/29/22 06/17/22 06/17/22 Rx days #240 tabs Intraoperative Neuromonitoring #1 ea 06/17/22 Unknown Rx omeprazole magnesium 20 mg 20 mg PO DAILY 06/17/22 06/17/22 06/17/22 History tablet,delayed release (Prilosec OTC) Allergies Allergy/AdvReac Type Severity Reaction Status Date / Time No Known Allergies Allergy Verified 06/17/22 10:14 [facility] Anesthesia Medical History Cervical disc disease Chronic thoracic back pain Facet arthropathy, lumbar Fibromyalgia Hx of receiving diagnoses in [place] prior to 2008 Generalized anxiety disorder High risk medication use Inflammatory arthritis Joint pain Lumbar stenosis Major depressive disorder, recurrent episode, moderate with anxious distress Myalgia Nicotine dependence, chewing tobacco, uncomplicated Opioid contract exists Psychiatric care Surgical History Hx of appendectomy Hx of cholecystectomy Family History Other CAD (coronary artery disease) Diabetes Hypertension Rheumatoid arthritis Stroke Denies family history of Lupus Chronic kidney disease (CKD) Anesthesia complication Social History Smoking and tobacco status: former smoker Second hand smoke exposure: No Alcohol intake: current Alcohol intake frequency: holidays/special occasions only Alcohol type: beer Lives independently: Yes History of recent travel: No Data Anesthesia Cardiac Studies: No Data to Display
[2022-06-24] VITALS (20 sets, daily range): BP systolic 102–140; BP diastolic 55–99; PULSE 76–87; RESP 12–19; TEMP 36.1–36.2; O2SAT 93–99
--- NOTE | 2022-06-24 | XR_ITS ---
WS: [id number] XR cervical spine 3V* [id number] REASON FOR EXAM: acdf c4-5, c5-6, c6-7; or pic FINDINGS: Anterior oblique screw fixation with interbody fusion device at C4-C5 and C6-C7 Interbody fusion device remains in place at C5-C6. Previously demonstrated compression deformity of C6. Surgical appliances are in proper position and alignment. XR/XR cervical spine 3V* [id number] IMPRESSION: Postoperative cervical spine as above.
[2022-06-24] MEDS: sodium chloride 0.9% 1,000 ML 30 ML IV (06:24)
--- NOTE | 2022-06-24 06:30 | PM.HP ---
Providers/Chief Complaint Primary Care Provider: Jossy Nelson DO Chief Complaint: ANTERIOR INTERBODY FUSION W/DISCETOMY AND DECOMRES History of Present Illness Fabricio Nolasco is a 46 year old male history of ACDF colapsing above and some settling of previous ACDF. Radicular arm pain and neck pain Review of Systems General: Reports: 10 or more systems reviewed and unremarkable except in HPI and below Const: Reports: fatigue; Denies: fever(s) Eyes: Denies: change in vision or blurry vision ENMT: Denies: throat pain or uvular edema Card: Denies: chest pain or palpitations GI: Denies: abdominal pain, nausea or vomiting : Denies: flank pain or difficulty urinating Musc: Reports: muscle weakness Skin/Breast: Denies: rash or pruritus Neuro: Reports: headache(s) Medications/Allergies Home Medications Medication Instructions Recorded Confirmed Last Taken Type [place] J Collar #1 ea 07/26/21 05/27/22 Unknown Rx lisinopril 20 1 tab PO QAM 10/19/21 06/17/22 06/23/22 History mg-hydrochlorothiazide 25 mg tablet hydroxyzine pamoate 50 mg capsule 50 mg PO BID PRN anxiety #60 caps 03/07/22 06/24/22 Unknown Rx (Vistaril) trazodone 100 mg tablet 100 mg PO DIRECTED #60 tabs 03/07/22 06/17/22 06/23/22 Rx ibuprofen 800 mg tablet 800 mg PO TID PRN pain #90 tabs 03/27/22 06/24/22 06/22/22 Rx cyclobenzaprine 5 mg tablet 5 mg PO TID PRN muscle spasm #60 04/29/22 06/24/22 06/23/22 Rx tabs tramadol 50 mg tablet 100 mg PO QID PRN chronic pain 30 04/29/22 06/24/22 06/24/22 Rx days #240 tabs Intraoperative Neuromonitoring #1 ea 06/17/22 Unknown Rx omeprazole magnesium 20 mg 20 mg PO DAILY 06/17/22 06/17/22 06/24/22 History tablet,delayed release (Prilosec OTC) Allergies Allergy/AdvReac Type Severity Reaction Status Date / Time No Known Allergies Allergy Verified 06/17/22 10:14 PFSH Acute PFSH: Medical History Cervical disc disease Chronic thoracic back pain Facet arthropathy, lumbar Fibromyalgia Hx of receiving diagnoses in [place] prior to 2008 Generalized anxiety disorder High risk medication use Inflammatory arthritis Joint pain Lumbar stenosis Major depressive disorder, recurrent episode, moderate with anxious distress Myalgia Nicotine dependence, chewing tobacco, uncomplicated Opioid contract exists Psychiatric care Surgical History Hx of appendectomy Hx of cholecystectomy Family History Other CAD (coronary artery disease) Diabetes Hypertension Rheumatoid arthritis Stroke Denies family history of Lupus Chronic kidney disease (CKD) Anesthesia complication Social History Smoking and tobacco status: former smoker Second hand smoke exposure: No Alcohol intake: current Alcohol intake frequency: holidays/special occasions only Alcohol type: beer Lives independently: Yes History of recent travel: No Vitals/I&O/Wt Last Vital Signs O2 Del Method 06/24/22 06:12 Physical Exam Narrative: CONSTITUTIONAL: The patient is a normal appearing [] in no apparent distress. GENERAL: Patient in no acute distress. CARDIAC: Regular rate and rhythm. CHEST: Normal inspiratory effort, normal respiratory rate. ABDOMEN: Soft and nontender. SKIN: Clear, warm and intact. NEURO?PSYCH: The patient is alert and oriented to person, place and time. Sensorv /SILT Motor StrengthShoulder abduction C5 5/5Wrist extension C6 5/5Elbow extension C7 5/5Hand End User Support Specialist C8 5/5Finger abduction T15/5 Radial/ Ulnar/ Median n intact LowerSensory (SILT)Motor StrengthHin flexion L2/3Ant/inner thigh 5/5Hip adduction L2/3 5/5Knee extension L4 Lat thigh, 5/5Toe dorsiflexion L5 5/5Ankle dorsiflexion L5/ I91Fiyfnns flexion S1 5/5 DTRBleeps 2+Triceps 2+Brachioradialis 2+Patellar 2+Achilles 2+ MUSCULOSKELETAL: [] UPPEREXTREMITIES: The patient had full active ROM in fingers, wrist, elbow, and shoulder. The patient demonstrated ability to fully flex/extend/abduct/adduct fingers, make ok sign, cross 2nd/3rd digits, extend 1st digit fully.. Radial pulse 2+, CR<2 seconds. LOWER EXTREMITIES: Pt has full, active ROM of toes, ankle, knee, and hip. Dorsalis pedis/posterior tibialis pulses 2+, CR<2 seconds. SPINE: Skin warm, dry, intact. A&P Assessment and plan (1) Cervical spondylosis with radiculopathy: revision ACDF Attestations Medical Necessity Statement*: failed conservative tx Coding Level of Care Code Acute Floor Runner for [facility] Fwd Diagnoses Cervical spondylosis with radiculopathy M47.22
--- NOTE | 2022-06-24 06:46 | P.ANESUD_ITS ---
Pre-Anesthetic Update Pre-Anesthetic Assessment: Date of Surgery/Procedure: 06/24/22 Preop Karen gnosis: Failed hardware cervical spine, cervical spondylosis with radiculopathy Proposed Procedure: Operation Date: 06/24/22 07:10 Proposed Procedures p Anterior Cervical Discectomy & Fusion C4/5 C5/6 C6/7 [id number]/(Not Applicable) - Shady Long, DO s Cervical Decompression(Not Applicable) - Shadyzeke Long, DO Any changes to Pre-Anesthetic Assessment?: No Last Intake: Intake Last Liquid Date 06/23/22 Last Liquid Time 20:00 Last Solid Date 06/23/22 Last Solid Time 20:00 Vitals: Oxygen Delivery Me thod 06/24/22 06:12 Exam: Pre-Anes Outpt Exam: alert, oriented x 3, clear to auscultation bilaterally and regular rate & rhythm Cardiac Studies: No Data to Display
[2022-06-24] MEDS: ceFAZolin 1,000 MG in sodium chloride 0.9% (plus) 50 ML 100 MG IV (07:00)
[2022-06-24] MEDS: ceFAZolin 2,000 MG in sodium chloride 0.9% (plus) 50 ML 100 MG IV (07:43)
--- NOTE | 2022-06-24 07:46 | SUR.OPER ---
Called pt's mother and notified her of surgical start
--- NOTE | 2022-06-24 09:37 | PM.OP ---
Operative Report Date of procedure: June 24, 2022 Pre-op diagnosis: Preop Diagnosis Failed hardware cervical spine, cervical spondylosis with radiculopathy Post-op diagnosis: same Procedure done: 1. Anterior diskectomy C4/5 2. Removal of cage from C6/7 3. Removal of plate from C5-C7 4. Exploration of nonunion at C5/6 and C6/7 5. Insertion of cage C4/5 6. Insertion of Cage C6/7 7. Instrumentation from C4 to C5 8. Instrumentation from C6 to C7 Surgeon: Shady Long Placement Specialist: Dick Monge Estimated blood loss (mL): 10 Procedure: 1. Anterior diskectomy C4/5 2. Removal of cage from C6/7 3. Removal of plate from C5-C7 4. Exploration of nonunion at C5/6 and C6/7 5. Insertion of cage C4/5 6. Insertion of Cage C6/7 7. Instrumentation from C4 to C5 8. Instrumentation from C6 to C7 Patient brought the operative suite after undergoing anesthesia was placed in the supine position. All areas impingement well-padded. Patient had neuro monitoring?throughout entire case no complications with any neuro monitoring at the time of surgery. Patient was prepped and draped normal sterile fashion. Skin incision made over the previous incision. The platysmas was identified and undermined. And dissection was made down to the anterior cervical spine the plate was identified. The plate was from C5-C7. The screws in the C5-C6 and C7 vertebral bodies were removed. Then the plate was removed. Once plate was removed then the dissection was made from C5-C7. Exploration of the C5-6 disc space cage was identified. Cage was attempted to be removed and felt to be stable felt to be a full fusion at the C5-6 level. Extension was brought down to the C6-7 level of the nonunion was explored the cage was felt to be loose at this point osteotomes were taken and in the cage was freed up the insertion guide was placed onto the C5-6 vertebral cage. Once this was attached to the cage was removed. The disc base was then irrigated out osteotomes were used to pedal the inferior and superior endplates of C6 and C7 respectively. The drill was used to bur down the edges. And then a standard cages placed a size 7 stable cage was inserted ostial amp bone graft was packed into the disc base as well as into the cage. A screw was placed from the cage into the C6 vertebral body and another screw was placed from the cage into the C7 vertebral body. Attention was brought to the C4/5 level that was confirmed on x-ray. A caspar pin was placed into the C4 vertebrae and the C5 vertebrae. The disk space was then distracted. The microscope was then brought in. A radical anterior discectomies were performed at C4/5. This included complete removal of the anterior annulus, nucleus, and posterior annulus. The posterior longitudinal ligament was removed as were the posterior osteophytes. Foraminotomies were then accomplished bilaterally. This was done using a high speed fuad, kerrison rongeurs and curretes Once all of this was accomplished, the curved currette was used to check for any residual compression. The central canal was wide open as were the foramen. A high-speed bur was used to remove the cartilaginous endplates above and below the interspace. Bleeding cancellous bone was exposed. The disc space were measured and appropriate size cage were placed sterilely onto the field. Allograft graft was packed into the cages. The cage was then placed and there was good juxtaposition against the bleeding decorticated surfaces and good distraction of each interspace. Attention was brought to the next interspace. The [place] pins were removed. Bone wax was used to prevent any bleeding from occurring at the pin sites. Screws were then placed from the cage into the inferior aspect of C4 body. And then a screw was placed from the cage into the body of C5. At this point wounds were irrigated and the wound was closed in layered fashion side of the platysmas using 0 Vicryl 2-0 Vicryl and Monocryl suture.
[2022-06-24] MEDS: fentaNYL 50 mcg/mL INJ 2mL IVP ×2 (09:44→09:51)
[2022-06-24] MEDS: HYDROmorphone 1 mg/mL INJ 1 mL 0.5 MG IVP (10:07)
[2022-06-24] MEDS: HYDROmorphone 1 mg/mL INJ 1 mL 0.25 MG IVP (10:24)
[2022-06-24] MEDS: HYDROcodone-acetaminophen 5-325 mg Tablet 2 TAB PO (10:56)
--- NOTE | 2022-06-24 13:52 | ANE.PACU2 ---
Inpatient post-anesthesia follow up: Airway intact: Yes Vital signs: Temperature 97.2 F Pulse Rate 81 Respiratory Rate 18 Blood Pressure 113/68 Pulse Oximetry 95 Oxygen Delivery Me thod Room Air Oxygen Flow Rate 6 Fraction of Inspir ed Oxygen Hydration adequate: Yes Nausea and vomiting: No Pain level: 1 Mental status: Baseline
== END 2022-06-24 11:41 | disposition home or self-care (01) ==
PROVIDERS: PCP Family Medicine; Visit Provider Orthopaedic Surgery
PROC: 0RB30ZZ Excision of Cervical Vertebral Disc, Open Approach (ICD-10-PCS; CPT 22551; principal; 2022-06-24 07:00)
PROC: (CPT 63001; 2022-06-24 07:00)
DX: T84.296A Other mechanical complication of internal fixation device of vertebrae, initial encounter (principal); M47.22 Other spondylosis with radiculopathy, cervical region; I10 Essential (primary) hypertension; K21.9 Gastro-esophageal reflux disease without esophagitis; E66.01 Morbid (severe) obesity due to excess calories; Z68.33 Body mass index [BMI] 33.0-33.9, adult; M79.7 Fibromyalgia; F41.9 Anxiety disorder, unspecified; F32.A Depression, unspecified; Z87.891 Personal history of nicotine dependence
CPT/HCPCS: 20930; 22551; 22552 ×2; 22846; 22853 ×2; 51702; 72040; 76000; C1713; J0131; J0330; J0690; J1100; J1170; J2250; J2370; J2405; J2704; J3010; J3490; J7030

== ENCOUNTER → 2022-07-09 13:20 | Outpatient (BNVA) | payer MEDICAID, SELFPAY | PROVIDERS: PCP Family Medicine; Visit Provider Orthopaedic Surgery | DX: Z47.89 Encounter for other orthopedic aftercare (principal); Z98.1 Arthrodesis status | CPT/HCPCS: 99024 ==

== ENCOUNTER → 2022-07-25 08:39 | Outpatient (BNVA) | payer MEDICAID, SELFPAY | PROVIDERS: PCP Family Medicine; Visit Provider Physician Assistant | DX: Z98.1 Arthrodesis status (principal) | CPT/HCPCS: 72040; 99024 ==

== ENCOUNTER → 2022-08-06 10:34 | Outpatient (BNVA) | payer MEDICAID, SELFPAY | PROVIDERS: PCP Family Medicine; Visit Provider Orthopaedic Surgery | DX: Z47.89 Encounter for other orthopedic aftercare (principal); Z98.1 Arthrodesis status | CPT/HCPCS: 72040; 99024; 99212 ==

== ENCOUNTER 2022-09-05 08:19 | Outpatient (CLI) | payer MEDICAID, SELFPAY ==
[2022-09-05 08:54] VITALS: BMI 36.2
--- NOTE | 2022-09-05 08:55 | ECG_ITS ---
[facility] Test Date: 2022-09-05 Pat Name: Fabricio Nolasco Department: Room: Gender: Male [employer]inery [employer] Worker: Chelsea Buchanan : 1975 Requested By: Gladis Wyatt Order Number: [id number] Polo MD: Zina Durham M.D. Interpretive Statements NAME OF STUDY: LEXISCAN SESTAMIBI STRESS TEST INDICATION: [Chest Pain, ] PROCEDURE: At the baseline, the EKG revealed normal sinus rhythm with normal ST Ts.. The baseline heart was 94 bpm with a blood pressue of 141/103 mm of Hg Lexiscan was infused over a period of 20 seconds. A total of 0.4 milligrams of Lexiscan was infused. The stress phase was continued for a total of 5 minutes. Heart rate at the end of the stress phase was 106 bpm with a blood pressure 151/95 mm of Hg. The EKG at the peak infusion revealed [no significant changes] []. Sestamibi was injected 20 seconds after the Lexiscan infusion. Heart rate at the end of the recovery phase was 103 bpm with a blood pressure of 138/95 mm of Hg. no significant changes Chest Pain, CONCLUSION: 1. No significant EKG changes with the[] LexiScan infusion[] 2. No LexiScan induced chest pain or cardiac arrhythmia [] 3. Normal blood pressure and heart rate response [] 4. Sestamibi/sestamibi perfusion scan pending; see separate report. Electronically Signed On 09-07-2022 14:12:35 CORNICE UPHOLSTERER by Zina Durham M.D. [id number]
--- NOTE | 2022-09-05 08:55 | NMCV_ITS ---
NM ghazal perf SPECT r/s* [id number] Fabricio Nolasco Age: 47 Gender: M : 1975 Exam Date: 09/05/2022 10:08 Ordering Phys: Gladis Wyatt Technologist: TRENTON Vila Exam Location: [facility] Indications: CHEST PAIN STRESS TEST Please see separate stress test report in [facility] for full findings IMAGE PROTOCOL Rest/Stress 1 Lexiscan Day Radiopharmaceutical Dose (mCi) Administration Site Administered by Rest: Tc-99m 11.0 IV TRENTON Vila Sestamibi Stress:Tc-99m 33.0 IV TRENTON Mcclure Sestamibi Rest: 05-Sep-2022 60 Discovery 630 Stress: 05-Sep-2022 30 Discovery 630 0.4mg Lexiscan. Images obtained in supine and prone position. SPECT RESULTS Technical Quality: Excellent Raw Data Analysis: Normal Image Corrections: No attenuation or motion correction applied Summed Stress Score: 0 Summed Rest Score: 1 Summed Difference Score: 0 PERFUSION FINDINGS Moderate area of slightly decreased tracer uptake was noted in the inferior wall region. No significant reversibility was noted in this region FUNCTIONAL RESULTS (calculated via Gated SPECT) Stress Image LV EF (%): 58 Stress EDV (mL):116 TID: 0.83 Stress ESV (mL):49 FUNCTIONAL FINDINGS: Segmental wall motion analysis revealing no gross wall motion abnormalities IMPRESSIONS 1. Myocardial perfusion imaging revealing small area of slightly decreased persistent decreased tracer uptake in the inferior wall region most likely represent attenuation artifact. 2. Normal LV ejection fraction of 50%. 3. LV wall motion analysis revealing no gross wall motion abnormalities. 4. LV volume, upper limit of normal Low probability for coronary ischemia, based on the above findings No similar previous studies are available for comparison Dr Zina Durham MD [facility] (Electronically Signed) Final Date: 05 September 2022 13:39 S
[2022-09-05] MEDS: regadenoson 0.4 Mg/5 ml Syringe IVP (10:45)
[2022-09-05 11:00] VITALS: BP 138/95; PULSE 103
== END 2022-09-05 08:20 | disposition home or self-care (01) ==
LOC: CDL 08:21
PROVIDERS: PCP Family Medicine; Visit Provider Nurse Practitioner Family
DX: R07.9 Chest pain, unspecified (principal)
CPT/HCPCS: 36415; 78452; 93017; 96374; A9500; J2785

== ENCOUNTER → 2022-09-17 13:06 | Outpatient (BNVA) | payer MEDICAID, SELFPAY | PROVIDERS: PCP Family Medicine; Visit Provider Physician Assistant | DX: Z98.1 Arthrodesis status (principal) | CPT/HCPCS: 72040; 99213 ==

== ENCOUNTER → 2022-10-14 09:34 | Outpatient (BNVA) | payer MEDICAID, SELFPAY | PROVIDERS: PCP Family Medicine; Referring Provider Physician Assistant; Visit Provider Anesthesiology Pain Medicine | DX: G89.29 Other chronic pain (principal); M47.816 Spondylosis without myelopathy or radiculopathy, lumbar region; M48.061 Spinal stenosis, lumbar region without neurogenic claudication; M47.812 Spondylosis without myelopathy or radiculopathy, cervical region; M79.604 Pain in right leg; M79.605 Pain in left leg; M54.12 Radiculopathy, cervical region; M50.90 Cervical disc disorder, unspecified, unspecified cervical region; M54.6 Pain in thoracic spine; M25.50 Pain in unspecified joint | CPT/HCPCS: 99214 ==

== ENCOUNTER → 2022-10-16 15:38 | Outpatient (BNVA) | payer MEDICAID, SELFPAY | PROVIDERS: PCP Family Medicine; Visit Provider Nurse Practitioner Family | DX: I10 Essential (primary) hypertension (principal) | CPT/HCPCS: 80053; 80061 ==

== ENCOUNTER → 2022-10-30 15:13 | Outpatient (BNVA) | payer MEDICAID, SELFPAY | PROVIDERS: PCP Family Medicine; Visit Provider Nurse Practitioner Family | DX: R35.0 Frequency of micturition (principal); N39.0 Urinary tract infection, site not specified; G47.30 Sleep apnea, unspecified; I10 Essential (primary) hypertension; R39.9 Unspecified symptoms and signs involving the genitourinary system | CPT/HCPCS: 81000; 87086 ==

== ENCOUNTER → 2022-10-31 13:50 | Outpatient (BNVA) | payer MEDICAID, SELFPAY | PROVIDERS: PCP Family Medicine; Visit Provider Anesthesiology Pain Medicine | DX: M54.16 Radiculopathy, lumbar region (principal); M79.604 Pain in right leg | CPT/HCPCS: 64483; 64484; J1100; J3490 ==

== ENCOUNTER → 2022-11-13 13:58 | Outpatient (BNVA) | payer MEDICAID, SELFPAY | PROVIDERS: PCP Nurse Practitioner Family; Visit Provider Anesthesiology Pain Medicine | DX: M54.16 Radiculopathy, lumbar region (principal); M47.816 Spondylosis without myelopathy or radiculopathy, lumbar region | CPT/HCPCS: 64483; 64484; J1100; J3490 ==

== ENCOUNTER → 2022-12-12 13:59 | Outpatient (BNVA) | payer MEDICAID, SELFPAY | PROVIDERS: PCP Nurse Practitioner Family; Visit Provider Physician Assistant | DX: M54.16 Radiculopathy, lumbar region (principal); M79.604 Pain in right leg; M79.605 Pain in left leg | CPT/HCPCS: 99213 ==

== ENCOUNTER → 2022-12-16 10:48 | Outpatient (BNVA) | payer MEDICAID, SELFPAY | PROVIDERS: PCP Nurse Practitioner Family; Visit Provider Anesthesiology Pain Medicine | DX: G89.29 Other chronic pain (principal); M50.90 Cervical disc disorder, unspecified, unspecified cervical region; M54.12 Radiculopathy, cervical region; M47.812 Spondylosis without myelopathy or radiculopathy, cervical region; M47.816 Spondylosis without myelopathy or radiculopathy, lumbar region; M48.061 Spinal stenosis, lumbar region without neurogenic claudication; R25.3 Fasciculation; M79.10 Myalgia, unspecified site; M79.604 Pain in right leg; M79.605 Pain in left leg | CPT/HCPCS: 99214 ==

== ENCOUNTER → 2022-12-31 14:35 | Outpatient (BNVA) | payer MEDICAID, SELFPAY | PROVIDERS: PCP Nurse Practitioner Family; Visit Provider Anesthesiology Pain Medicine | DX: M47.812 Spondylosis without myelopathy or radiculopathy, cervical region (principal) | CPT/HCPCS: 64490; 64491; 64492; J3490 ==

== ENCOUNTER 2023-01-02 11:24 | Outpatient (CLI) | payer MEDICAID, SELFPAY ==
--- NOTE | 2023-01-02 11:45 | MR_ITS ---
WS: [id number] MRI LUMBAR SPINE NONCONTRAST HISTORY: lumbar pain COMPARISON: 02/27/2022 TECHNIQUE: Sagittal and axial multisequence imaging is submitted. Mild straightening of the normal cervical lordosis and thoracic kyphosis. Mild straightening of the normal lumbar spine lordosis. Similar to the prior examination. There is ve ry slight retrolisthesis of L3 by 2 mm. No fractures or marrow edema. Disc spaces and vertebral body heights are well-preserved. Conus terminates normally at L1. L1-L2: Mild disc bulging with no stenosis. L2-L3: Mild annular disc bulging with no stenosis. L3-L4: Mild annular disc bulging. Mild encroachment upon the subarticular recesses. Shallow LEFT fora tess disc protrusion with mild LEFT foraminal narrowing. No high-grade stenosis. Small amount of flu id in the facet joints. L4-L5: Mild disc bulging with effacement of the ventral thecal sac. Mild subarticular recess encroach ment. Shallow LEFT foraminal disc protrusion with annular fissures. Moderate encroachment and effacem ent of fat in the LEFT foramen. There is mild to moderate LEFT foraminal stenosis and mild RIGHT fora tess stenosis. Mild bilateral facet and ligamentum flavum hypertrophy. Fluid in the facet joints. L5-S1: Mild asymmetric disc bulging and foraminal osteophytes. Mild bilateral foraminal stenosis. Paravertebral soft tissues are normal. MR/MR lumbar spine wo con* [id number] IMPRESSION: 1. Mild to moderate stenosis LEFT foramen at L4-5 due to disc protrusion with annular fissures. This disc protrusion and stenosis was also described on 022. The disc is slightly decreased in size with slight decrease in stenosis si nce the prior study. 2. Mild effacement of CSF at L3-4 and L4-5 and encroachment upon the subarticu lar recesses but no high-grade stenosis. 3. Mild RIGHT foraminal stenosis at L4-5. 4. Mild bilateral foraminal stenosis at L5-S1.
== END 2023-01-02 11:25 | disposition home or self-care (01) ==
LOC: RAD 11:26
PROVIDERS: PCP Nurse Practitioner Family; Visit Provider Physician Assistant
DX: M54.16 Radiculopathy, lumbar region (principal); M48.061 Spinal stenosis, lumbar region without neurogenic claudication; M51.37 Other intervertebral disc degeneration, lumbosacral region; M48.07 Spinal stenosis, lumbosacral region
CPT/HCPCS: 72148; 99213

== ENCOUNTER → 2023-01-07 13:16 | Outpatient (BNVA) | payer MEDICAID, SELFPAY | PROVIDERS: PCP Nurse Practitioner Family; Visit Provider Anesthesiology Pain Medicine | DX: M47.812 Spondylosis without myelopathy or radiculopathy, cervical region (principal); M54.16 Radiculopathy, lumbar region; M79.604 Pain in right leg; M79.605 Pain in left leg | CPT/HCPCS: 64490; 64491; 64492; 99213; J3490 ==

== ENCOUNTER → 2023-02-03 09:21 | Outpatient (BNVA) | payer MEDICAID, SELFPAY | PROVIDERS: PCP Nurse Practitioner Family; Visit Provider Anesthesiology Pain Medicine | DX: G89.29 Other chronic pain (principal); M54.6 Pain in thoracic spine; M47.816 Spondylosis without myelopathy or radiculopathy, lumbar region; M47.812 Spondylosis without myelopathy or radiculopathy, cervical region; M54.12 Radiculopathy, cervical region; M50.90 Cervical disc disorder, unspecified, unspecified cervical region; M48.061 Spinal stenosis, lumbar region without neurogenic claudication; M25.50 Pain in unspecified joint; M79.10 Myalgia, unspecified site | CPT/HCPCS: 99214 ==

== ENCOUNTER → 2023-02-11 14:58 | Outpatient (BNVA) | payer MEDICAID, SELFPAY | PROVIDERS: PCP Nurse Practitioner Family; Visit Provider Orthopaedic Surgery | DX: Z01.818 Encounter for other preprocedural examination (principal); Z09 Encounter for follow-up examination after completed treatment for conditions other than malignant neoplasm | CPT/HCPCS: 36415; 80053; 81001; 85025; 99214 ==

== ENCOUNTER → 2023-02-26 12:35 | Outpatient (BNVA) | payer MEDICAID, SELFPAY | PROVIDERS: PCP Nurse Practitioner Family; Visit Provider Anesthesiology Pain Medicine | DX: M47.812 Spondylosis without myelopathy or radiculopathy, cervical region (principal); G89.29 Other chronic pain; M50.90 Cervical disc disorder, unspecified, unspecified cervical region; M54.6 Pain in thoracic spine; G57.93 Unspecified mononeuropathy of bilateral lower limbs | CPT/HCPCS: 64633; 64634; J1030 ==

== ENCOUNTER → 2023-03-05 09:05 | Outpatient (BNVA) | payer MEDICAID, SELFPAY | PROVIDERS: PCP Nurse Practitioner Family; Visit Provider Nurse Practitioner Family | DX: R82.71 Bacteriuria (principal); N39.0 Urinary tract infection, site not specified; R35.0 Frequency of micturition; I10 Essential (primary) hypertension; N52.9 Male erectile dysfunction, unspecified | CPT/HCPCS: 80048; 80061; 81003; 87086; G0103 ==

== ENCOUNTER 2023-03-07 05:47 | Day surgery (SDC) | payer MEDICAID, SELFPAY ==
[2023-03-06 08:31] VITALS: BMI 36.2
[2023-03-07] VITALS (7 sets, daily range): BP systolic 127–143; BP diastolic 76–100; PULSE 72–97; RESP 16–18; TEMP 36.1–36.7; O2SAT 93–96; BMI 36.2
--- NOTE | 2023-03-07 | XR_ITS ---
WS: [id number] XR lumbar spine 1V [id number] REASON FOR EXAM: OR pic,L3-L4 decompression FINDINGS: Surgical device overlying the lateral L3/L4 disc space. IMPRESSION: Lumbar localization and surgery as above.
[2023-03-07] MEDS: sodium chloride 0.9% 1,000 ML 30 ML IV (06:21)
--- NOTE | 2023-03-07 06:24 | W.PM.OPSUD ---
Surgery/Procedure H&P Update DATE OF PROCEDURE: March 07, 2023 DATE H&P PERFORMED: 02/11/23 H&P UPDATE INFORMATION: I have reviewed H&P completed within last 30 days, I have examined patient prior to procedure and No changes to prior documentation PREOP DIAGNOSIS: Lumbar radiculopathy PLANNED PROCEDURE: Operation Date: 03/07/23 07:00 Proposed Procedures p L3/4 Lumbar Decompression:33743,M54.50,M79.604,M79.605,M54.16 TO STAND ON LEFT(Bilateral) - Shady Long, DO
[2023-03-07] MEDS: ceFAZolin 2,000 MG in sodium chloride 0.9% (plus) 50 ML 100 MG IV (07:00)
--- NOTE | 2023-03-07 07:02 | ANES.PREANE2 ---
Pre-Anesthetic Assessment Height/Weight: Height 1.91 m Weight 131.542 kg Temp Pulse Resp BP Pulse Ox O2 Del Method 98.0 F 87 17 127/92 96 Room Air 03/07/23 05:50 03/07/23 05:50 03/07/23 05:50 03/07/23 05:50 03/07/23 05:50 03/07/23 05:50 Preop Diagnosis: Lumbar radiculopathy Operation Date: 03/07/23 07:00 Proposed Procedures p L3/4 Lumbar Decompression:42222,M54.50,M79.604,M79.605,M54.16 TO STAND ON LEFT(Bilateral) - Shady Long, Familial anesthetic complications: None Was Beta Dariana taken within 24 hours: N/A Was Clonidine taken within 24 hours: N/A Last intake: Intake Last Liquid Date 03/06/23 Last Liquid Time 22:00 Last Solid Date 03/06/23 Last Solid Time 22:00 Social No alcohol and No tobacco Exam alert, oriented x 3, clear to auscultation bilaterally and regular rate & rhythm Airway Mallampati: Class III Dentition: other (missing) Pulmonary Sleep Apnea CV/HEM Hypertension GI Gastroesophageal Reflux Disease Metabolic Morbid Obesity Anesthetic Plan ASA status: 2 Anesthesia: General Risk of > 500 ml blood loss (7ml/kg in children): No Medications/Allergies Home Medications Medication Instructions Recorded Confirmed Last Taken Type [place] J Collar #1 ea 07/26/21 03/05/23 Unknown Rx esomeprazole magnesium 20 mg 20 mg PO DAILY 08/14/22 03/06/23 03/05/23 History capsule,delayed release (Nexium 24HR) diazepam 5 mg tablet (Valium) 5 mg PO BID PRN anxiety/spasms #5 12/12/22 03/06/23 Unknown Rx tabs duloxetine 60 mg capsule,delayed 60 mg PO .morning #30 caps 01/01/23 03/06/23 Unknown Rx release (Cymbalta) hydroxyzine pamoate 50 mg capsule 50 mg PO BID PRN anxiety #60 caps 01/01/23 03/06/23 Unknown Rx (Vistaril) trazodone 100 mg tablet 100 mg PO DIRECTED #60 tabs 01/01/23 03/06/23 03/06/23 Rx lisinopril 20 See Rx Instructions .Route 01/15/23 03/06/23 03/05/23 Rx mg-hydrochlorothiazide 25 mg tablet .COMPLEX #90 tabs sildenafil 100 mg tablet See Rx Instructions .Route 02/21/23 03/06/23 Unknown Rx .COMPLEX #10 tabs cyclobenzaprine 5 mg tablet 5 mg PO TID PRN muscle spasm #60 02/26/23 03/06/23 03/05/23 Rx tabs ibuprofen 800 mg tablet 800 mg PO TID PRN pain #90 tabs 02/26/23 03/06/23 03/04/23 Rx tramadol 50 mg tablet 100 mg PO QID PRN chronic pain 30 02/26/23 03/07/23 03/07/23 04:20 Rx days #240 tabs Allergies Allergy/AdvReac Type Severity Reaction Status Date / Time No Known Allergies Allergy Verified 03/05/23 09:13 Current Medications Generic Name Dose Route Start Last Admin Trade Name Freq PRN Reason Stop Dose Admin Sodium Chloride 1,000 mls @ 30 mls/hr 03/07/23 06:00 03/07/23 06:21 Sodium Chloride 0.9% IV 03/08/23 05:59 30 mls/hr .Q24H MICHAEL Administration PFSH Anesthesia Medical History Benign essential HTN Cervical disc disease Chronic thoracic back pain Facet arthropathy, lumbar Fibromyalgia Hx of receiving diagnoses in [place] prior to 2008 Generalized anxiety disorder High risk medication use Inflammatory arthritis Joint pain Lumbar stenosis Major depressive disorder, recurrent episode, moderate with anxious distress Myalgia Nicotine dependence, chewing tobacco, uncomplicated Opioid contract exists Psychiatric care Surgical History Hx of appendectomy Hx of cholecystectomy Hx of neck surgery Family History Other CAD (coronary artery disease) Diabetes Hypertension Rheumatoid arthritis Stroke Denies family history of Lupus Clotting disorder Chronic kidney disease (CKD) Anesthesia complication Bleeding disorder Social History Smoking and tobacco status: former smoker Second hand smoke exposure: No Alcohol intake: current Alcohol intake frequency: holidays/special occasions only Alcohol type: beer Substance/Drug Use: former Adopted: No Lives independently: Yes Household members: children Housing: Apartment Data Anesthesia Cardiac Studies: Sestamibi Stress Test (Cardiology) 09/05/22
[2023-03-07] MEDS: lidocaine-epi 1% 20 mL INJ INJECTION (07:52)
--- NOTE | 2023-03-07 08:25 | P.OP_ITS ---
Operative Report Date of procedure: March 07, 2023 Pre-op diagnosis: Preop Diagnosis lumbar stenosis with neurogenic claudication Post-op diagnosis: same Procedure done: L3-4 laminectomy with partial facetectomies Surgeon: Shady Long Battery Tester: None Estimated blood loss (mL): 50 Procedure: L3-4 laminectomy with partial facetectomies Patient is brought to the operative suite. After undergoing anesthesia they are placed in the prone position. All areas of impingement are well padded. Patient is then prepped and draped in the normal sterile fashion. A skin incision is made over the L3/4 level. This is confirmed under c-arm guidance. A series of dilators are passed and the tubular retractor is docked on the L3 lamina. A bovie is used to clear the soft tissue off the lamina and the L 3/4 facet joint. A high speed fuad is then used to perform the laminectomy and take down the medial aspect of the L 3/4 facet joint. A kerrison rongeure was then used to take down the remaining lamina and smooth the edged of the laminectomy up to the point where the ligamentum flavum attaches. Attention was then brought to the medial aspect of the facet joint. The remaining medial aspect of the superior and inferior aspect of the facet joint were taken down with the kerrison from the pedicle of L3 to L 4. The facet joint had significant hypertrophy. Attention was then brought to the Ligamentum Flavum. The ligament was taken down from the lamina of L3 to L4 and out medially to the remaining facet joint. The ligament was thick. The dura was then exposed. The dura was in good repair. The L3 nerve was then traced with a curette out the L3/4 foramen and found to be adequately decompressed. The L4 nerve was traced with a curette around the L4 pedicle. The lateral recess was opened with a kerrison helping to further decompress the L4 nerve. The tubular retractor was then tilted to the contralateral side. The bovie was used to take down the soft tissue on the spinous process. The high speed fuad was used to take down the spinous process and then the contralateral lamina of L3. The kerrison rongeur was used to take down the remaining lamina to the point where the ligamentum flavum attached and the ligamentum flavum was taken down from L3 to L4. The kerrison rongeur was then used to reach across and take down the medial aspect of the contralateral L3/4 facet joint.The currete was used to trace the contralateral L3 nerve out the L3/4 foramen to make sure it was decompressed adequatesly and the L4 was traced around the L4 pedicle. The lateral recess was opened further with the kerrison to ensure the L4 is adequately decompressed. Wound is then irrigated copiously with saline and surgiflo is used to stop any bleeding. The tubular retractor is removed and the wound is closed with vicryl and monocryl suture. Glue is then used to protect the wound. A sterile dressing is then placed. Patient was then placed in the supine position and transferred to the PACU in stable condition.
--- NOTE | 2023-03-07 08:40 | ANE.PACU2 ---
Inpatient post-anesthesia follow up: Airway intact: Yes Vital signs: Temperature 97 F Pulse Rate 72 Respiratory Rate 16 Blood Pressure 140/91 Pulse Oximetry 95 Oxygen Delivery Me thod Room Air Oxygen Flow Rate Fraction of Inspir ed Oxygen Hydration adequate: Yes Nausea and vomiting: No Pain level: 1 Mental status: Baseline
[2023-03-07] MEDS: HYDROcodone-acetaminophen 5-325 mg Tablet 2 TAB PO (08:51)
== END 2023-03-07 09:10 | disposition home or self-care (01) ==
PROVIDERS: PCP Nurse Practitioner Family; Visit Provider Orthopaedic Surgery
PROC: (CPT 63005; principal; 2023-03-07 07:00)
DX: M48.062 Spinal stenosis, lumbar region with neurogenic claudication (principal); I10 Essential (primary) hypertension; K21.9 Gastro-esophageal reflux disease without esophagitis; G47.33 Obstructive sleep apnea (adult) (pediatric); E66.01 Morbid (severe) obesity due to excess calories; Z68.36 Body mass index [BMI] 36.0-36.9, adult; Z79.899 Other long term (current) drug therapy; Z87.891 Personal history of nicotine dependence
CPT/HCPCS: 63047; 72020; 76000; J0690; J1100; J1170; J2405; J2704; J2710; J3010; J3490; J7030

== ENCOUNTER 2023-03-10 12:44 | Emergency (ER) | payer MEDICAID, SELFPAY ==
[2023-03-10 12:50] VITALS: BP 142/92; PULSE 95; RESP 16; TEMP 36.6; O2SAT 95; BMI 36.2
--- NOTE | 2023-03-10 13:04 | ED_ITS ---
HPI - Back Pain/Injury General: Chief Complaint: Back Pain/Injury Stated Complaint: surg 03/07 / abd pain/NV Time Seen by Provider: 03/10/23 12:50 Source: patient Mode of arrival: ambulatory (With cane) Limitations: no limitations History of Present Illness: Patient is a 47-year-old male who presents to the emergency department status post L3-L4 laminectomy/partial facetectomy on Friday due to postoperative pain. Patient states that following the procedure, he felt okay until Friday when he noticed bilateral shooting sciatic sacral/buttock pain. Reports a history of peripheral neuropathy and sciatic nerve pain, but says it has never been localized just to the buttock region like it is now. He is also complaining of some midline cervical tenderness, worsened with rotation of the neck. He denies any fever or changes in extremity such as weakness, numbness, or tingling. His primary complaint at this time is the pain and he states it has not been controlled by 3 times daily hydrocodone that he was discharged with following the surgery. He has been ambulatory with use of a cane. The pain is episodic and described as a twinging pain that startles him. He rates his current pain as a 23/10. He also notes some associated nausea. Patient denies bowel or bladder incontinence, saddle anesthesia, chest pain, shortness of breath, or any other symptoms at this time. MD elicited complaint: other (Postoperative pain) Pertinent past history: back surgery Onset (ago): day(s) Timing: intermittent Severity: severe Similar Symptoms Previously: Yes (Not as significant) Quality: other (Twinging, shooting) Location: sacrum Radiation: buttocks Exacerbating factors: movement Relieving factors: none Associated symptoms: Reports nausea; Deny abdominal pain, chills, dysuria, fever(s), syncope or vomiting Work related injury: No Review of Systems Const: Reports: other (Reports postoperative pain); Denies: fever(s) or chills Eyes: Denies: change in vision or blurry vision Card: Denies: chest pain, palpitations, irregular heart rhythm, lightheadedness, syncope or dyspnea on exertion Resp: Denies: dyspnea, productive cough or pain on inspiration GI: Reports: nausea; Denies: abdominal pain, vomiting, heartburn or diarrhea : Reports: other (no urine retention); Denies: difficulty urinating, dysuria, urinary hesitancy or urinary incontinence Musc: Reports: neck pain and back pain; Denies: extremity pain, extremity swelling, joint pain or joint swelling Skin/Breast: Denies: rash Neuro: Denies: headache(s), numbness in extremities, weakness in extremities, sensory changes or dizziness PFSH ED PFSH: Medical History Benign essential HTN Cervical disc disease Chronic thoracic back pain Facet arthropathy, lumbar Fibromyalgia Hx of receiving diagnoses in [place] prior to 2008 Generalized anxiety disorder High risk medication use Inflammatory arthritis Joint pain Lumbar stenosis Major depressive disorder, recurrent episode, moderate with anxious distress Myalgia Nicotine dependence, chewing tobacco, uncomplicated Opioid contract exists Psychiatric care Surgical History Hx of appendectomy Hx of cholecystectomy Hx of neck surgery Family History Other CAD (coronary artery disease) Diabetes Hypertension Rheumatoid arthritis Stroke Denies family history of Lupus Clotting disorder Chronic kidney disease (CKD) Anesthesia complication Bleeding disorder Social History Smoking and tobacco status: former smoker Second hand smoke exposure: No Alcohol intake: current Alcohol intake frequency: holidays/special occasions only Alcohol type: beer Substance/Drug Use: former Adopted: No Lives independently: Yes Household members: children Housing: Apartment Physical Exam Const: COMMON NORMALS: no acute distress, patient oriented x3, no limitations, alert and well nourished NUTRITIONAL APPEARANCE: overweight ORIENTATION/CONSCIOUSNESS: Yes awake, Yes oriented to person, Yes oriented to place and Yes oriented to time HENMT: COMMON NORMALS: normocephalic and atraumatic HEAD & SCALP: normocephalic and atraumatic Neck/C-Spine: COMMON NORMALS: full ROM, no lymphadenopathy, supple and no meningeal signs GENERAL: Yes normal visual inspection and Yes tender (Mild tenderness to palpation of the midline cervical spine) OTHER: Negative Kernig/Brudzinski's Resp: COMMON NORMALS: normal respiratory effort and clear to auscultation bilaterally AUSCULTATION: clear to auscultation bilaterally Cardio: COMMON NORMALS: regular rate and regular rhythm RATE: regular rate RHYTHM: regular rhythm GI: COMMON NORMALS: Normal to inspection, nondistended, normoactive bowel sounds present, Soft to palpation, non-tender, No hepatosplenomegaly present and no masses PALPATION: Yes Soft to palpation and Yes No hepatosplenomegaly present : COMMON NORMALS: Yes no CVA tenderness BLADDER/KIDNEY EXAM: Yes no CVA tenderness Back/Pelvis: COMMON NORMALS: no CVA tenderness, thoracic and lumbar spine normal to inspection and no thoracic nor lumbar tenderness THORACIC SPINE/UPPER BACK: Yes normal to inspection, Yes thoracic ROM normal, No thoracic spinal tenderness, No paraspinal muscle tenderness and No paraspinal muscle spasm LUMBAR SPINE/LOWER BACK: Yes pain with ROM, No lumbar spinal tenderness and Yes straight leg raise negative bilaterally PELVIS: Yes buttocks normal and No sciatic notch tenderness SACROILIAC JOINTS: Yes SI joint(s) abnormal SI joint details: tender to palpation (Bilaterally) SACRUM: no tenderness COCCYX: no tenderness OTHER: Well-healing midline lumbar surgical scar Extremity: COMMON NORMALS: normal to inspection and full ROM GENERAL: Yes normal exam except as noted Neuro: COMMON NORMALS: patient oriented x3, moves all extremities, no focal motor deficits and no sensory deficits noted SENSORIUM/ORIENTATION: Yes alert, Yes oriented to person, Yes oriented to place and Yes oriented to time MENINGEAL SIGNS: Yes no meningeal signs GAIT: Yes Antalgic gait present SENSORY EXAM: Yes extremities (normal) MOTOR EXAM: 5/5 motor strength present throughout Skin: COMMON NORMALS: no rashes or lesions noted GENERAL SKIN EXAM: no rashes or lesions noted Course Consultations: Consultation #1: Dick Monge PA-C-didn't feel any imaging at this time would be of much yield, stated it sounded like normal post operative discomforts, recommends a prednisone taper and for the patient to call Dr. Long's office and schedule an appointment for tomorrow Vital Signs: Vital signs: Vital Signs Temperature 97.8 F 03/10/23 12:50 Pulse Rate 95 03/10/23 12:50 Respiratory Rate 16 03/10/23 12:50 Blood Pressure 142/92 03/10/23 12:50 Pulse Oximetry 95 03/10/23 12:50 Oxygen Delivery Me thod Room Air 03/10/23 12:50 MDM - Back Pain/Injury Medical Decision Making This patient was seen and evaluated in the emergency department today for 2 days of postoperative back pain with associated sciatic radiation into the bilateral buttocks. His vitals have been stable throughout the ED course and his pain has remained controlled. On examination he exhibited no distal neurological deficits in his extremities and showed equal strengths in his legs bilaterally. He has had no saddle anesthesia and bowel and bladder function has reportedly remained intact. His most concerning complaint has been his pain and lack of relief from his prescription hydrocodone. The rest of his exam was unremarkable and his incision is healing appropriately. I discussed with Dick Monge PA-C with Dr. Long who operated on the patient, who felt that the patient does not need further emergent imaging, as his symptoms are likely a result from postoperative nerve swelling. He feels it is appropriate that the patient be started on a prednisone taper and that he follow-up with Dr. Long tomorrow. No further testing is warranted at this time, and the patient agrees with this plan and will call once discharge. Discharge Plan Discharge Patient Disposition: Home Clinical Impression: Postoperative back pain Condition: Stable Prescriptions: New prednisone 10 mg tablet 10 mg PO DAILY 10 Days Qty: 20 0RF Rx Instructions: Take 5 tabs on day 1-2, 4 tabs on day 3, 3 tabs on day 4, 2 tabs on day 5, and 1 tab on day 6 No Action (DME) Ruchi Mccartney See Rx Instructions .Route .MEDSUPPLY Qty: 1 0RF Rx Instructions: As directed esomeprazole magnesium [Nexium 24HR] 20 mg capsule,delayed release(DR/EC) 20 mg PO DAILY diazepam [Valium] 5 mg tablet 5 mg PO BID PRN (Reason: anxiety/spasms) Qty: 5 0RF duloxetine [Cymbalta] 60 mg capsule,delayed release(DR/EC) 60 mg PO .morning Qty: 30 4RF Rx Instructions: Take one capsule every morning hydroxyzine pamoate [Vistaril] 50 mg capsule 50 mg PO BID PRN (Reason: anxiety) Qty: 60 3RF Rx Instructions: May take one capsule twice per day as needed for anxiety trazodone 100 mg tablet 100 mg PO DIRECTED Qty: 60 3RF Rx Instructions: May take one tablet one hour prior to bedtime as needed for sleep, may repeat dose in one hour if not asleep. tramadol 50 mg tablet 100 mg PO QID MDD 8 PRN (Reason: chronic pain) 30 Days Qty: 240 1RF cyclobenzaprine 5 mg tablet 5 mg PO TID PRN (Reason: muscle spasm) Qty: 60 1RF ibuprofen 800 mg tablet 800 mg PO TID PRN (Reason: pain) Qty: 90 0RF Hold Instructions: Resume on 07/01/22. lisinopril-hydrochlorothiazide 20-25 mg tablet See Rx Instructions .ROUTE .COMPLEX Qty: 90 0RF Dose Instruction: TAKE 1 TABLET BY MOUTH EVERY MORNING Rx Instructions: TAKE 1 TABLET BY MOUTH EVERY MORNING sildenafil 100 mg tablet See Rx Instructions .ROUTE .COMPLEX Qty: 10 0RF Dose Instruction: TAKE 1 TABLET BY MOUTH DAILY 30 MINUTES TO 4 HOURS PRIOR TO SEXUAL ACTIVITY Rx Instructions: TAKE 1 TABLET BY MOUTH DAILY 30 MINUTES TO 4 HOURS PRIOR TO SEXUAL ACTIVITY sildenafil [Viagra] 50 mg tablet 50 mg PO DAILY PRN (Reason: sexual activity) Qty: 30 0RF Rx Instructions: administer 30 minutes to 4 hours before activity hydrocodone-acetaminophen 5-325 mg tablet 1 - 2 tab PO .Q4-6H Qty: 40 0RF Discharge Orders: Discharge ED (Routine); Ordered 03/10/23 Ordered By: Vianca Nieves Referrals: Gladis Wyatt FNP [Primary Care Provider] - Patient Instructions: Pain Management After Surgery (DC), Opioid Safety Activity Restrictions/Additional Instructions: As we discussed Dr. Long/Dick FUNES will see you in office tomorrow for follow up. Please contact their office upon discharge to get an appointment time. We will also have her case management team work on this as well. Coding Level of Care Code ED Continuing Education Instructor for Katia Weiss
[2023-03-10] MEDS: dexamethasone 10 mg/mL INJ 8 MG IM (13:46)
[2023-03-10] MEDS: morphine 4 mg/mL SDV 1 mL IM (13:47)
--- NOTE | 2023-03-10 14:03 | DCPLANNER ---
Addendum entered by Melanie Preston 03/12/23 11:47: Patient had a follow up appointment scheduled for 03.11.23 at ortho - patient did attend appointment. Original Note: poultry hatchery manager had message to schedule a follow up appointment for patient with ortho. poultry hatchery manager sent patients information to the front office staff at ortho. Patients information will be printed and reviewed. Clinic will call patient with appointment information.
== END 2023-03-10 13:53 | disposition home or self-care (01) ==
PROVIDERS: Emergency Provider Physician Assistant; PCP Nurse Practitioner Family
DX: G89.18 Other acute postprocedural pain (principal); M54.50 Low back pain, unspecified; Z87.891 Personal history of nicotine dependence; I10 Essential (primary) hypertension
CPT/HCPCS: 96372; 99284; J1100; J2270

== ENCOUNTER → 2023-03-11 09:40 | Outpatient (BNVA) | payer MEDICAID, SELFPAY | PROVIDERS: PCP Nurse Practitioner Family; Visit Provider Physician Assistant | DX: Z47.89 Encounter for other orthopedic aftercare (principal) | CPT/HCPCS: 99024 ==

== ENCOUNTER → 2023-03-13 09:21 | Outpatient (BNVA) | payer MEDICAID, SELFPAY | PROVIDERS: PCP Nurse Practitioner Family; Visit Provider Anesthesiology Pain Medicine | DX: G89.29 Other chronic pain; M47.816 Spondylosis without myelopathy or radiculopathy, lumbar region; M48.061 Spinal stenosis, lumbar region without neurogenic claudication; M47.812 Spondylosis without myelopathy or radiculopathy, cervical region; M54.12 Radiculopathy, cervical region; M54.6 Pain in thoracic spine; M50.90 Cervical disc disorder, unspecified, unspecified cervical region; M25.50 Pain in unspecified joint; M79.10 Myalgia, unspecified site | CPT/HCPCS: 99214 ==

== ENCOUNTER → 2023-03-27 13:23 | Outpatient (BNVA) | payer MEDICAID, SELFPAY | PROVIDERS: PCP Nurse Practitioner Family; Visit Provider Orthopaedic Surgery | DX: Z47.89 Encounter for other orthopedic aftercare (principal) | CPT/HCPCS: 99024 ==

== ENCOUNTER → 2023-04-17 13:35 | Outpatient (BNVA) | payer MEDICAID, SELFPAY | PROVIDERS: PCP Nurse Practitioner Family; Visit Provider Orthopaedic Surgery | DX: Z47.89 Encounter for other orthopedic aftercare (principal) | CPT/HCPCS: 99024; 99212 ==

== ENCOUNTER → 2023-04-28 13:53 | Outpatient (BNVA) | payer MEDICAID, SELFPAY | PROVIDERS: PCP Nurse Practitioner Family; Visit Provider Anesthesiology Pain Medicine | DX: M47.812 Spondylosis without myelopathy or radiculopathy, cervical region (principal) | CPT/HCPCS: 64633; 64634; J1030 ==

== ENCOUNTER → 2023-05-12 10:03 | Outpatient (BNVA) | payer MEDICAID, SELFPAY | PROVIDERS: PCP Nurse Practitioner Family; Visit Provider Anesthesiology Pain Medicine | DX: G89.29 Other chronic pain; M50.90 Cervical disc disorder, unspecified, unspecified cervical region; M47.816 Spondylosis without myelopathy or radiculopathy, lumbar region; M79.10 Myalgia, unspecified site; M47.812 Spondylosis without myelopathy or radiculopathy, cervical region; M54.12 Radiculopathy, cervical region; M48.061 Spinal stenosis, lumbar region without neurogenic claudication; M54.6 Pain in thoracic spine | CPT/HCPCS: 99214 ==

== ENCOUNTER → 2023-05-26 15:43 | Outpatient (BNVA) | payer MEDICAID, SELFPAY | PROVIDERS: PCP Nurse Practitioner Family; Visit Provider Nurse Practitioner Family | DX: M79.606 Pain in leg, unspecified (principal); E04.1 Nontoxic single thyroid nodule; K76.0 Fatty (change of) liver, not elsewhere classified | CPT/HCPCS: 80053; 84439; 84443; 84481 ==

== ENCOUNTER → 2023-05-27 13:15 | Outpatient (BNVA) | payer MEDICAID, SELFPAY | PROVIDERS: PCP Nurse Practitioner Family; Visit Provider Anesthesiology Pain Medicine | DX: M53.3 Sacrococcygeal disorders, not elsewhere classified (principal) | CPT/HCPCS: 20610; 27096; 77002; J1030; J3490 ==

== ENCOUNTER → 2023-05-29 13:27 | Outpatient (BNVA) | payer MEDICAID, SELFPAY | PROVIDERS: PCP Nurse Practitioner Family; Visit Provider Orthopaedic Surgery | DX: Z47.89 Encounter for other orthopedic aftercare (principal) | CPT/HCPCS: 99024; 99213 ==

== ENCOUNTER 2023-06-25 11:40 | Outpatient (CLI) | payer MEDICAID, SELFPAY ==
--- NOTE | 2023-06-25 12:00 | USCV_ITS ---
Fabricio Nolasco Age: 47 Gender: M : 1975 Exam Date: 06/25/2023 12:13 Ordering Phys: Gladis Wyatt-C PLASTIC JOINT MAKER Technologist: CT Exam Location: [facility] [place] Indication: claudication Risk Factors: Previous Vascular Surgery: RIGHT LEFT BP: 141.0 / 75.00 BP: 140.0/ 70.00 0 0 Waveform Velocity (cm/s) Velocity (cm/s) Waveform Triphasic 61.1 Iliac Prox 76.7 Triphasic Triphasic 62.6 Iliac Mid 67.3 Triphasic Triphasic 53.9 Iliac Distal 61.3 Triphasic Triphasic 44.7 SHIRT IRONER SUPERVISOR 40.3 Triphasic Triphasic 63.5 SFA Prox 57.0 Triphasic Triphasic 85.7 SFA Mid 73.3 Triphasic Triphasic SFA Dist Triphasic 73.6 59.6 Triphasic 47.1 POP 58.4 Triphasic Triphasic 51.6 UTILITY OPERATOR YARN 85.9 Triphasic Triphasic 51.6 DPA 66.5 Triphasic 1.0 BENJY 1.0 FINDINGS Intimal thickening in the iliac and femoral arteries bilaterally Normal arterial Doppler flow velocities and Doppler waveforms Resting BENJY 1.0 bilaterally CONCLUSIONS Normal resting ABIs with a normal Doppler waveforms and velocities bilaterally. No evidence of any significant arterial obstruction, based on the above findings. Dr Zina Durham MD [facility] (Electronically Signed) Final Date: 26 June 2023 20:28 S
--- NOTE | 2023-06-25 12:45 | US_ITS ---
WS: [id number] THYROID ULTRASOUND HISTORY: E04.1 - Nontoxic single thyroid nodule COMPARISON: None available. Right lobe: 1.9 cm x 2.1 cm x 5.2 cm (w x ap x l). Volume: 10.8 cm3. There is a hypoechoic nodule with scattered echogenic foci. Nodule measures 1.2 x 1.5 x 1.3 cm. No in creased vascularity. The nodule is taller than wide. Left lobe: 1.7 cm x 1.2 cm x 4.5 cm (w x ap x l). Volume: 4.8 cm3. Normal size and echotexture. No significant or dominant nodules are present. Isthmus: 0.5 cm. IMPRESSION: 1. TI-RADS 5; nodule in the mid RIGHT thyroid. Recommend fine-needle aspiration.
== END 2023-06-25 11:41 | disposition home or self-care (01) ==
LOC: RAD 11:40
PROVIDERS: PCP Nurse Practitioner Family; Visit Provider Nurse Practitioner Family
DX: I73.9 Peripheral vascular disease, unspecified (principal); E04.1 Nontoxic single thyroid nodule; M79.605 Pain in left leg; M79.604 Pain in right leg
CPT/HCPCS: 76536; 93925

== ENCOUNTER → 2023-07-08 10:47 | Outpatient (BNVA) | payer MEDICAID, SELFPAY | PROVIDERS: PCP Nurse Practitioner Family; Visit Provider Anesthesiology Pain Medicine | DX: G89.29 Other chronic pain; M48.061 Spinal stenosis, lumbar region without neurogenic claudication; M47.816 Spondylosis without myelopathy or radiculopathy, lumbar region; M47.814 Spondylosis without myelopathy or radiculopathy, thoracic region; M47.812 Spondylosis without myelopathy or radiculopathy, cervical region; M50.90 Cervical disc disorder, unspecified, unspecified cervical region; M54.12 Radiculopathy, cervical region; M25.50 Pain in unspecified joint; M79.10 Myalgia, unspecified site; R25.3 Fasciculation | CPT/HCPCS: 99214 ==

== ENCOUNTER → 2023-08-07 10:54 | Outpatient (BNVA) | payer MEDICAID, SELFPAY | PROVIDERS: PCP Nurse Practitioner Family; Visit Provider Anesthesiology Pain Medicine | DX: G89.29 Other chronic pain; M50.90 Cervical disc disorder, unspecified, unspecified cervical region; M47.812 Spondylosis without myelopathy or radiculopathy, cervical region; M54.6 Pain in thoracic spine; M79.604 Pain in right leg; M79.605 Pain in left leg; M47.816 Spondylosis without myelopathy or radiculopathy, lumbar region; M25.50 Pain in unspecified joint; M79.10 Myalgia, unspecified site; M54.12 Radiculopathy, cervical region; M48.061 Spinal stenosis, lumbar region without neurogenic claudication; M25.511 Pain in right shoulder; M25.512 Pain in left shoulder; R25.3 Fasciculation; M75.101 Unspecified rotator cuff tear or rupture of right shoulder, not specified as traumatic; M19.011 Primary osteoarthritis, right shoulder | CPT/HCPCS: 73030; 99214 ==

== ENCOUNTER → 2023-08-28 10:10 | Outpatient (BNVA) | payer MEDICAID, SELFPAY | PROVIDERS: PCP Nurse Practitioner Family; Visit Provider Orthopaedic Surgery | DX: M48.062 Spinal stenosis, lumbar region with neurogenic claudication; E04.1 Nontoxic single thyroid nodule; R63.5 Abnormal weight gain; Z68.38 Body mass index [BMI] 38.0-38.9, adult; R20.2 Paresthesia of skin | CPT/HCPCS: 99204; 99214 ==

== ENCOUNTER → 2023-09-02 12:32 | Outpatient (BNVA) | payer MEDICAID, SELFPAY | PROVIDERS: PCP Nurse Practitioner Family; Visit Provider Anesthesiology Pain Medicine | DX: G89.29 Other chronic pain; M50.90 Cervical disc disorder, unspecified, unspecified cervical region; M48.062 Spinal stenosis, lumbar region with neurogenic claudication; M47.816 Spondylosis without myelopathy or radiculopathy, lumbar region; M79.10 Myalgia, unspecified site; M47.812 Spondylosis without myelopathy or radiculopathy, cervical region; M54.12 Radiculopathy, cervical region; M48.061 Spinal stenosis, lumbar region without neurogenic claudication; M19.011 Primary osteoarthritis, right shoulder; M19.012 Primary osteoarthritis, left shoulder | CPT/HCPCS: 20610; 99214; J1030; J3490 ==

== ENCOUNTER 2023-09-12 09:45 | Outpatient (CLI) | payer MEDICAID, SELFPAY ==
--- NOTE | 2023-09-12 10:00 | US_ITS ---
WS: [id number] ULTRASOUND THYROID FNA CLINICAL INFORMATION: thyroid nodule TECHNIQUE: Ultrasound-guided FNA FINDINGS: The procedure including risks, benefits, and complications were discussed with the patient who agreed to proceed. Timeout was performed. Using sterile technique patient was prepped and draped in usual sterile fashion. After 1% lidocaine, using ultrasound guidance, a 25-gauge needle was advanc ed into the RIGHT thyroid nodule. 7 passes were made with active aspiration. Pathology was present fo r slide preparation. No immediate complications. Patient remained in the ultrasound suite 10 minutes postprocedure with intermittent ultrasound to ens ure no hematoma. No hematoma 10 minutes postprocedure. IMPRESSION: Uncomplicated ultrasound-guided thyroid FNA RIGHT thyroid nodule
== END 2023-09-12 09:46 | disposition home or self-care (01) ==
LOC: RAD 09:45
PROVIDERS: PCP Nurse Practitioner Family; Visit Provider Internal Medicine
DX: E04.1 Nontoxic single thyroid nodule (principal)
CPT/HCPCS: 10005; 88173

== ENCOUNTER → 2023-10-01 11:16 | Outpatient (BNVA) | payer OTHER, SELFPAY | PROVIDERS: PCP Nurse Practitioner Family; Visit Provider Anesthesiology Pain Medicine | DX: G89.29 Other chronic pain; M50.90 Cervical disc disorder, unspecified, unspecified cervical region; M47.812 Spondylosis without myelopathy or radiculopathy, cervical region; M48.062 Spinal stenosis, lumbar region with neurogenic claudication; M47.816 Spondylosis without myelopathy or radiculopathy, lumbar region; M48.061 Spinal stenosis, lumbar region without neurogenic claudication; M54.12 Radiculopathy, cervical region; M79.10 Myalgia, unspecified site; R25.3 Fasciculation | CPT/HCPCS: 99214 ==

== ENCOUNTER → 2023-10-20 14:06 | Outpatient (BNVA) | payer MEDICAID, SELFPAY | PROVIDERS: PCP Nurse Practitioner Family; Visit Provider Anesthesiology Pain Medicine | DX: M47.816 Spondylosis without myelopathy or radiculopathy, lumbar region (principal); M48.062 Spinal stenosis, lumbar region with neurogenic claudication | CPT/HCPCS: 64635; 64636; J1030 ==

== ENCOUNTER → 2023-10-27 11:04 | Outpatient (BNVA) | payer MEDICAID, SELFPAY | PROVIDERS: PCP Nurse Practitioner Family; Referring Provider Nurse Practitioner Family; Visit Provider Dermatology | DX: D48.5 Neoplasm of uncertain behavior of skin (principal); L91.8 Other hypertrophic disorders of the skin; D22.39 Melanocytic nevi of other parts of face; D22.5 Melanocytic nevi of trunk; B35.1 Tinea unguium | CPT/HCPCS: 11102; 11200; 99203 ==

== ENCOUNTER → 2023-11-04 13:08 | Outpatient (BNVA) | payer MEDICAID, SELFPAY | PROVIDERS: PCP Nurse Practitioner Family; Visit Provider Anesthesiology Pain Medicine | DX: M47.816 Spondylosis without myelopathy or radiculopathy, lumbar region (principal); M48.062 Spinal stenosis, lumbar region with neurogenic claudication | CPT/HCPCS: 64635; 64636; J1010 ==

== ENCOUNTER → 2023-12-10 11:20 | Outpatient (BNVA) | payer MEDICAID, SELFPAY | PROVIDERS: PCP Nurse Practitioner Family; Visit Provider Anesthesiology Pain Medicine | DX: G89.29 Other chronic pain; M48.062 Spinal stenosis, lumbar region with neurogenic claudication; M79.604 Pain in right leg; M79.605 Pain in left leg; M54.6 Pain in thoracic spine; M47.816 Spondylosis without myelopathy or radiculopathy, lumbar region; M79.10 Myalgia, unspecified site; M47.812 Spondylosis without myelopathy or radiculopathy, cervical region; M54.12 Radiculopathy, cervical region; M50.90 Cervical disc disorder, unspecified, unspecified cervical region; M48.061 Spinal stenosis, lumbar region without neurogenic claudication; R25.3 Fasciculation | CPT/HCPCS: 99214 ==

== ENCOUNTER → 2023-12-17 11:46 | Outpatient (BNVA) | payer MEDICAID, SELFPAY | PROVIDERS: PCP Nurse Practitioner Family; Visit Provider Nurse Practitioner Family | DX: M19.90 Unspecified osteoarthritis, unspecified site (principal); R53.83 Other fatigue; M48.062 Spinal stenosis, lumbar region with neurogenic claudication; N52.9 Male erectile dysfunction, unspecified | CPT/HCPCS: 80053; 85025; 85651; 86140 ==

== ENCOUNTER → 2023-12-29 11:53 | Outpatient (BNVA) | payer MEDICAID, SELFPAY | PROVIDERS: PCP Nurse Practitioner Family; Visit Provider Nurse Practitioner Family | DX: R53.83 Other fatigue (principal); R50.9 Fever, unspecified; I10 Essential (primary) hypertension; Z79.899 Other long term (current) drug therapy | CPT/HCPCS: 80053; 85025; 86618; 86666; 86757 ==

== ENCOUNTER → 2024-01-07 11:20 | Outpatient (BNVA) | payer MEDICAID, SELFPAY | PROVIDERS: PCP Nurse Practitioner Family; Visit Provider Anesthesiology Pain Medicine | DX: G89.29 Other chronic pain; M50.90 Cervical disc disorder, unspecified, unspecified cervical region; M48.062 Spinal stenosis, lumbar region with neurogenic claudication; M47.816 Spondylosis without myelopathy or radiculopathy, lumbar region; M25.50 Pain in unspecified joint; M79.10 Myalgia, unspecified site; M47.812 Spondylosis without myelopathy or radiculopathy, cervical region; M54.12 Radiculopathy, cervical region; M48.061 Spinal stenosis, lumbar region without neurogenic claudication; R25.3 Fasciculation | CPT/HCPCS: 99214 ==

== ENCOUNTER → 2024-01-13 12:55 | Outpatient (BNVA) | payer MEDICAID, SELFPAY | PROVIDERS: PCP Nurse Practitioner Family; Referring Provider Anesthesiology Pain Medicine; Visit Provider Student in an Organized Health Care Education/Training Program | DX: G56.03 Carpal tunnel syndrome, bilateral upper limbs; M75.22 Bicipital tendinitis, left shoulder; M75.42 Impingement syndrome of left shoulder | CPT/HCPCS: 20610; 73030; 99214; J3301 ==

== ENCOUNTER → 2024-04-12 16:01 | Outpatient (BNVA) | payer MEDICARE, SELFPAY | PROVIDERS: PCP Nurse Practitioner Family; Visit Provider Nurse Practitioner Family | DX: Z12.5 Encounter for screening for malignant neoplasm of prostate (principal); R35.0 Frequency of micturition; D72.9 Disorder of white blood cells, unspecified | CPT/HCPCS: 80053; 81000; 85025; G0103 ==

== ENCOUNTER → 2024-04-13 13:45 | Outpatient (BNVA) | payer MEDICARE, SELFPAY | PROVIDERS: PCP Nurse Practitioner Family; Visit Provider Student in an Organized Health Care Education/Training Program | DX: M75.42 Impingement syndrome of left shoulder (principal); M75.22 Bicipital tendinitis, left shoulder; G56.03 Carpal tunnel syndrome, bilateral upper limbs | CPT/HCPCS: 20610; 99213; J3301 ==

== ENCOUNTER → 2024-04-14 14:24 | Outpatient (BNVA) | payer MEDICARE, SELFPAY | PROVIDERS: PCP Nurse Practitioner Family; Visit Provider Student in an Organized Health Care Education/Training Program | DX: R73.9 Hyperglycemia, unspecified (principal) | CPT/HCPCS: 83036 ==

== ENCOUNTER → 2024-07-13 12:46 | Outpatient (BNVA) | payer MEDICARE, SELFPAY | PROVIDERS: PCP Nurse Practitioner Family; Visit Provider Student in an Organized Health Care Education/Training Program | DX: M75.42 Impingement syndrome of left shoulder (principal); R03.0 Elevated blood-pressure reading, without diagnosis of hypertension; M75.22 Bicipital tendinitis, left shoulder | CPT/HCPCS: 20610; 99213; J3301 ==

== ENCOUNTER → 2024-08-04 12:55 | Outpatient (BNVA) | payer MEDICARE, SELFPAY | PROVIDERS: PCP Nurse Practitioner Family; Visit Provider Anesthesiology Pain Medicine | DX: M54.12 Radiculopathy, cervical region (principal); Z79.891 Long term (current) use of opiate analgesic; M48.062 Spinal stenosis, lumbar region with neurogenic claudication; M79.604 Pain in right leg; M79.605 Pain in left leg; M54.6 Pain in thoracic spine; M47.816 Spondylosis without myelopathy or radiculopathy, lumbar region; M25.50 Pain in unspecified joint; M79.10 Myalgia, unspecified site; M47.812 Spondylosis without myelopathy or radiculopathy, cervical region; M50.90 Cervical disc disorder, unspecified, unspecified cervical region; M48.061 Spinal stenosis, lumbar region without neurogenic claudication; G89.29 Other chronic pain; R25.3 Fasciculation | CPT/HCPCS: 99214 ==

== ENCOUNTER → 2024-08-09 12:56 | Outpatient (BNVA) | payer MEDICARE, SELFPAY | PROVIDERS: PCP Nurse Practitioner Family; Visit Provider Anesthesiology Pain Medicine | DX: M48.062 Spinal stenosis, lumbar region with neurogenic claudication (principal); M47.816 Spondylosis without myelopathy or radiculopathy, lumbar region; M48.061 Spinal stenosis, lumbar region without neurogenic claudication; M54.12 Radiculopathy, cervical region; M47.812 Spondylosis without myelopathy or radiculopathy, cervical region; M50.90 Cervical disc disorder, unspecified, unspecified cervical region; M79.18 Myalgia, other site; M79.604 Pain in right leg; M79.605 Pain in left leg; G89.29 Other chronic pain; M54.6 Pain in thoracic spine; M25.50 Pain in unspecified joint; M79.10 Myalgia, unspecified site; R25.3 Fasciculation | CPT/HCPCS: 20553; 99214; J1010; J3490 ==

== ENCOUNTER → 2024-08-18 12:59 | Outpatient (BNVA) | payer MEDICARE, SELFPAY | PROVIDERS: PCP Nurse Practitioner Family; Visit Provider Anesthesiology Pain Medicine | DX: M47.816 Spondylosis without myelopathy or radiculopathy, lumbar region (principal); M48.062 Spinal stenosis, lumbar region with neurogenic claudication | CPT/HCPCS: 64635; 64636; J1010 ==

== ENCOUNTER → 2024-09-28 13:00 | Outpatient (BNVA) | payer MEDICARE, SELFPAY | PROVIDERS: PCP Nurse Practitioner Family; Visit Provider Anesthesiology Pain Medicine | DX: Z53.9 Procedure and treatment not carried out, unspecified reason (principal) | CPT/HCPCS: 64636 ==

== ENCOUNTER 2024-10-25 06:00 | Outpatient (CLI) | payer MEDICARE, SELFPAY | END 2024-10-25 06:01 | disposition home or self-care (01) | LOC: RAD 10-26 13:47 | PROVIDERS: PCP Nurse Practitioner Family; Visit Provider Anesthesiology Pain Medicine | DX: M48.062 Spinal stenosis, lumbar region with neurogenic claudication (principal); M54.2 Cervicalgia; M47.816 Spondylosis without myelopathy or radiculopathy, lumbar region; M79.10 Myalgia, unspecified site; M54.12 Radiculopathy, cervical region; R25.3 Fasciculation; M47.812 Spondylosis without myelopathy or radiculopathy, cervical region | CPT/HCPCS: 99214 ==

== ENCOUNTER → 2024-10-26 14:30 | Outpatient (BNVA) | payer MEDICARE, SELFPAY | PROVIDERS: PCP Nurse Practitioner Family; Visit Provider Student in an Organized Health Care Education/Training Program | DX: M75.42 Impingement syndrome of left shoulder (principal); M77.12 Lateral epicondylitis, left elbow | CPT/HCPCS: 20610; 99213; J3301; J9999 ==

== ENCOUNTER 2024-11-04 12:52 | Outpatient (CLI) | payer MEDICARE, OTHER, SELFPAY ==
--- NOTE | 2024-11-04 13:00 | MR_ITS ---
WS: [id number] MRI CERVICAL SPINE NONCONTRAST HISTORY: M54.12 - Radiculopathy, cervical region COMPARISON: 08/02/2019 Technique: Multiplanar, multisequence noncontrast imaging of the cervical spine. Anterior cervical fusion from C4-5 and C6-7. Interbody spacer at C5-6. 2 mm retrolisthesis of C4. Straightening of the normal cervical lordosis. No signal abnormality within the cord. Craniocervical junction, C1 and C2 relationship, odontoid process and soft tissues are normal. C2-C3: Normal. C3-C4: Osteophytic ridging with disc bulging. Very mild central stenosis. Moderate to severe bilateral foraminal stenosis due to osteophyte disease. C4-C5: Diffuse osteophytic ridging asymmetric to the RIGHT. Annular disc bulging. Moderate-sized RIGHT foraminal disc osteophyte complex resulting in moderate to severe stenosis. Mild stenosis on the LEFT. Mild central stenosis. C5-C6: Diffuse osteophytic ridging and facet arthritis. Minimal foraminal stenosis. C6-C7: Mild annular disc bulging, osteophytic ridging and facet arthritis. Moderate bilateral foraminal stenosis due to osteophytes. C7-T1: Mild osteophytic ridging. Disc osteophyte RIGHT foramen with moderate stenosis. Mild stenosis on the LEFT. Paraspinal soft tissue are normal. MR/MR cervical spin wo con* [id number] IMPRESSION: 1. Since the prior MRI from 2019 patient is undergone anterior cervical fusion s at C4-5 and C6-7 with an interbody spacer at C5-6. 2. Multiple disc levels of foraminal stenosis. 3. C3-4: Moderate to severe bilateral foraminal stenosis and mild central sten osis. 4. C4-5: Asymmetric disc osteophyte on the RIGHT. Moderate RIGHT disc osteophy te complex resulting in moderate to severe stenosis. 5. C6-7: Moderate bilateral foraminal stenosis due to osteophytes. 6. C7-T1: Moderate RIGHT foraminal stenosis due to disc osteophyte.
== END 2024-11-04 12:53 | disposition home or self-care (01) ==
PROVIDERS: PCP Nurse Practitioner Family; Visit Provider Anesthesiology Pain Medicine
DX: M54.12 Radiculopathy, cervical region (principal); Z98.1 Arthrodesis status; M48.02 Spinal stenosis, cervical region; M25.78 Osteophyte, vertebrae; M48.03 Spinal stenosis, cervicothoracic region; M50.31 Other cervical disc degeneration, high cervical region; M50.321 Other cervical disc degeneration at C4-C5 level; M50.323 Other cervical disc degeneration at C6-C7 level
CPT/HCPCS: 72141; 99214

== ENCOUNTER → 2024-12-08 09:14 | Outpatient (BNVA) | payer MEDICARE, OTHER, SELFPAY | PROVIDERS: PCP Nurse Practitioner Family; Visit Provider Anesthesiology Pain Medicine | DX: M47.812 Spondylosis without myelopathy or radiculopathy, cervical region (principal); M54.2 Cervicalgia | CPT/HCPCS: 64633; 64634; J1010; J9999 ==

== ENCOUNTER → 2025-02-16 13:18 | Outpatient (BNVA) | payer MEDICARE, OTHER, SELFPAY | PROVIDERS: PCP Nurse Practitioner Family; Visit Provider Physician Assistant | DX: M25.512 Pain in left shoulder (principal); M75.42 Impingement syndrome of left shoulder; M75.22 Bicipital tendinitis, left shoulder | CPT/HCPCS: 20610; 99213; J3301; J9999 ==

== ENCOUNTER → 2025-05-24 13:41 | Outpatient (BNVA) | payer MEDICARE, OTHER, SELFPAY | PROVIDERS: PCP Nurse Practitioner Family; Visit Provider Physician Assistant | DX: M75.42 Impingement syndrome of left shoulder (principal); M75.22 Bicipital tendinitis, left shoulder; Z71.89 Other specified counseling | CPT/HCPCS: 20610; 73030; 99213; J3301; J9999 ==

== ENCOUNTER → 2025-06-29 13:19 | Outpatient (BNVA) | payer MEDICARE, OTHER, SELFPAY | PROVIDERS: PCP Nurse Practitioner Family; Visit Provider Nurse Practitioner Family | DX: N40.0 Benign prostatic hyperplasia without lower urinary tract symptoms (principal); E11.9 Type 2 diabetes mellitus without complications; Z79.891 Long term (current) use of opiate analgesic; M48.061 Spinal stenosis, lumbar region without neurogenic claudication; E04.1 Nontoxic single thyroid nodule | CPT/HCPCS: 80053; 81000; 82040; 82043; 83036; 84270; 84403; 84439; 84443; 85025; G0103 ==

== ENCOUNTER → 2025-07-05 13:39 | Outpatient (BNVA) | payer MEDICARE, OTHER, SELFPAY | PROVIDERS: PCP Nurse Practitioner Family; Visit Provider Surgery | DX: Z12.11 Encounter for screening for malignant neoplasm of colon (principal) | CPT/HCPCS: 99024; 99204 ==

== ENCOUNTER → 2025-07-18 11:46 | Outpatient (BNVA) | payer MEDICARE, OTHER, SELFPAY | PROVIDERS: PCP Nurse Practitioner Family; Visit Provider Internal Medicine Endocrinology, Diabetes & Metabolism | DX: E04.1 Nontoxic single thyroid nodule (principal); R63.5 Abnormal weight gain; R03.0 Elevated blood-pressure reading, without diagnosis of hypertension | CPT/HCPCS: 99214 ==

== ENCOUNTER 2025-07-22 13:36 | Outpatient (CLI) | payer MEDICARE, OTHER, SELFPAY ==
--- NOTE | 2025-07-22 14:00 | US_ITS ---
WS: [id number] THYROID ULTRASOUND HISTORY: Thyroid nodules COMPARISON: 06/25/2023 Right lobe: 1.5 cm x 2.3 cm x 4.5 cm (w x ap x l). Volume: 7.3 cm3. Heterogeneous thyroid. Hypoechoic ill-defined nodule in the posterior mid gland is reidentified. Nodule measures 1.1 x 1.2 x 1.5 cm with no appreciable change since 06/25/2023. This nodule has undergone a prior biopsy as per history. Left lobe: 1.4 cm x 1.8 cm x 4.6 cm (w x ap x l). Volume: 5.6 cm3. Heterogeneous gland. No increased vascularity. No discrete nodule. Isthmus: 0.6 cm. US/US thyroid [id number] IMPRESSION: 1. Stable RIGHT thyroid nodule measuring 1.1 x 1.2 x 1.5 cm. This nodule has u ndergone a prior biopsy on 09/12/2023. This nodule has not increased in size.
== END 2025-07-22 13:37 | disposition home or self-care (01) ==
LOC: RAD 13:37
PROVIDERS: PCP Nurse Practitioner Family; Visit Provider Family Medicine
DX: E04.1 Nontoxic single thyroid nodule (principal)
CPT/HCPCS: 76536

== ENCOUNTER 2025-07-27 05:54 | Day surgery (SDC) | payer MEDICARE, OTHER, SELFPAY ==
[2025-07-27 06:10] VITALS: BP 117/93; PULSE 101; RESP 18; TEMP 36.4; O2SAT 95; BMI 37.5
--- NOTE | 2025-07-27 06:45 | W.PM.OPSUD ---
Surgery/Procedure H&P Update DATE OF PROCEDURE: July 27, 2025 DATE H&P PERFORMED: 07/05/25 H&P UPDATE INFORMATION: I have reviewed H&P completed within last 30 days, I have examined patient prior to procedure, No changes to prior documentation, H&P is in [facility] EMR on date indicated and Risks and benefits of the procedure reviewed PLANNED PROCEDURE: Operation Date: 07/27/25 07:00 Proposed Procedures p Colonoscopy [id number] Z12.11(Not Applicable) - Dipesh Navarro MD
--- NOTE | 2025-07-27 06:49 | ANES.PREANE2 ---
Pre-Anesthetic Assessment Height/Weight: Height 1.91 m Weight 136.078 kg Temp Pulse Resp BP Pulse Ox O2 Del Method 97.5 F L 101 H 18 117/93 95 Room Air 07/27/25 06:10 07/27/25 06:10 07/27/25 06:10 07/27/25 06:10 07/27/25 06:10 07/27/25 06:10 Operation Date: 07/27/25 07:00 Proposed Procedures p Colonoscopy 71390 G0121 Z12.11(Not Applicable) - Dipesh Navarro MD Familial anesthetic complications: none Last intake: Intake Last Liquid Date 07/26/25 Last Liquid Time 18:00 Last Solid Date 07/25/25 Last Solid Time 20:00 Social Alcohol and No tobacco occasional Exam alert, oriented x 3, clear to auscultation bilaterally and regular rate & rhythm Airway Submandibular: within normal limits Cervical ROM: Other (neck surgery- lifting head is difficult and painful) Mallampati: Class III Dentition: partials History/ROS No significant history except as noted Pulmonary None reported CV/HEM None reported None reported Hepatic None reported GI Gastroesophageal Reflux Disease Metabolic Morbid Obesity and Thyroid Disease (nodule on thyroid) Musc/skel Fibromyalgia, Lower Back Pain, Osteoarthritis/DJD and Weakness Neuropsych Anxiety and Depression Anesthetic Plan ASA status: 3 Anesthesia: MAC Risk of > 500 ml blood loss (7ml/kg in children): No Medications/Allergies Home Medications ?Medication ?Instructions ?Recorded ?Confirmed ?Last Taken ?Type trazodone 100 mg tablet 100 mg PO DIRECTED #60 tabs 09/23/23 07/27/25 07/26/25 Rx baclofen 20 mg tablet 20 mg PO TID spasm #90 tabs 05/31/24 07/27/25 07/26/25 Rx tramadol 50 mg tablet 100 mg (2 x 50 mg) PO QID PRN 05/31/24 07/27/25 07/27/25 Rx chronic pain 30 days #240 tabs ibuprofen 800 mg tablet 800 mg PO TID PRN pain #90 tabs 07/02/24 07/27/25 07/26/25 Rx testosterone 50 mg/5 gram (1 %) 1 packet transdermal QAM #150 grams 07/12/25 07/27/25 Unknown Rx transdermal gel esomeprazole magnesium 40 mg 40 mg PO DAILY 07/25/25 07/27/25 07/26/25 History capsule,delayed release lisinopril 20 1 tab PO DAILY 07/25/25 07/27/25 07/26/25 History mg-hydrochlorothiazide 25 mg tablet magnesium glycinate 350 mg PO QPM 07/25/25 07/27/25 07/26/25 History sildenafil 100 mg tablet 100 mg PO DAILY PRN Sexual Activity 07/25/25 07/27/25 Unknown History Allergies Allergy/AdvReac Type Severity Reaction Status Date / Time No Known Allergies Allergy Verified 07/25/25 08:18 Current Medications Generic Name Dose Route Start Last Admin Trade Name Freq PRN Reason Stop Dose Admin Sodium Chloride 1,000 mls @ 15 mls/hr 07/27/25 06:04 07/27/25 06:25 Sodium Chloride 0.9% IV 07/28/25 06:03 15 mls/hr .Q24H PRN Administration COLONOSCOPY FLUIDS PFSH Anesthesia Medical History Fibromyalgia Hx of receiving diagnoses in [place] prior to 2008 High risk medication use Inflammatory arthritis Myalgia Joint pain Benign essential HTN Opioid contract exists Facet arthropathy, lumbar Chronic thoracic back pain Cervical disc disease Nicotine dependence, chewing tobacco, uncomplicated Generalized anxiety disorder Major depressive disorder, recurrent episode, moderate with anxious distress Lumbar stenosis Surgical History Hx of neck surgery Hx of appendectomy Hx of cholecystectomy Family History Other CAD (coronary artery disease) Diabetes Hypertension Rheumatoid arthritis Stroke Denies family history of Lupus Clotting disorder Chronic kidney disease (CKD) Anesthesia complication Bleeding disorder Social History Smoking and tobacco/nicotine status: never used tobacco/nicotine Second hand smoke exposure: No Alcohol intake: current Alcohol intake frequency: holidays/special occasions only Alcohol type: beer Substance/Drug Use: former Adopted: No Lives independently: Yes Household members: children Housing: Apartment Data Anesthesia Cardiac Studies: Sestamibi Stress Test (Cardiology) 09/05/22
[2025-07-27 07:27] VITALS: BP 110/86; PULSE 97; RESP 16; TEMP 36.2; O2SAT 95
[2025-07-27 07:45] VITALS: BP 123/83; PULSE 81; RESP 18; O2SAT 97
--- NOTE | 2025-07-27 08:00 | ANE.PACU2 ---
Inpatient post-anesthesia follow up: Airway intact: Yes Vital signs: Temperature 97.2 F Pulse Rate 81 Respiratory Rate 18 Blood Pressure 123/83 Pulse Oximetry 97 Oxygen Delivery Me thod Room Air Oxygen Flow Rate Fraction of Inspir ed Oxygen Hydration adequate: Yes Nausea and vomiting: No Pain level: 1 Mental status: Baseline
== END 2025-07-27 08:01 | disposition home or self-care (01) ==
PROVIDERS: PCP Nurse Practitioner Family; Visit Provider Surgery
PROC: 0DJD8ZZ Inspection of Lower Intestinal Tract, Via Natural or Artificial Opening Endoscopic (ICD-10-PCS; CPT 45378; principal; 2025-07-27 07:00)
DX: Z12.11 Encounter for screening for malignant neoplasm of colon (principal); K57.30 Diverticulosis of large intestine without perforation or abscess without bleeding; D12.2 Benign neoplasm of ascending colon; D12.8 Benign neoplasm of rectum; M79.7 Fibromyalgia; I10 Essential (primary) hypertension; Z79.891 Long term (current) use of opiate analgesic; F41.9 Anxiety disorder, unspecified; F33.9 Major depressive disorder, recurrent, unspecified; F17.220 Nicotine dependence, chewing tobacco, uncomplicated; K21.9 Gastro-esophageal reflux disease without esophagitis
CPT/HCPCS: 45385; 88305; J2704; J7030